=== PATIENT | male | born 1930 | race Caucasian/White ===

== ENCOUNTER 2017-03-21 19:51 | Observation (INO) | payer MEDICARE, BC ==
[~2017-03-21] VITALS: Ht 182.9 cm; Wt 89.8 kg
[~2017-03-21 19:51] MED LIST: ADULT LOW DOSE81 MG PO; ALBUTEROL SULF8.5 GM INH; ASPIRIN EC325 MG PO; ASPIRIN EC81 MG PO; ASPIRIN325 MG PO; BLOOD GLUCOSE1 EACH MISC; CARVEDILOL12.5 MG PO; CARVEDILOL6.25 MG PO; CEPHALEXIN250 MG PO; CIPRO500 MG PO; CLOPIDOGREL75 MG PO; DAILY VITE1 EACH PO; DSS250 MG PO; GLIPIZIDE XL5 MG PO; GLYBURIDE2.5 MG PO; HYDROCODON-ACE1 EA11 PO; IBUPROFEN200 MG PO; LEVAQUIN500 MG PO; LISINOPRIL2.5 MG PO; LISINOPRIL5 MG PO; MAGNESIUM500 MG PO; METFORMIN HCL1000 MG PO; METFORMIN HCL500 M1 PO; METFORMIN HCL500 M2 PO; METFORMIN HCL500 MG PO; NITROSTAT0.3 MG SL; NITROSTAT0.4 MG SL; OCUVITE EYE +1 EACH PO; OCUVITE TABLET1 EAC1 PO; OXYBUTYNIN CHLOR5 MG PO; PLAVIX75 MG PO; PRILOSEC20 MG PO; PRINIVIL5 MG PO; PROMETHAZINE-COD5 ML PO; PROSTATE HEALT1 EACH PO; SENNO8.6 MG PO; SERTRALINE HCL50 MG PO; SILVADENE20 GM TOP; SIMVASTATIN20 MG PO; SIMVASTATIN40 MG PO; SLOW-MAG71.5 MG PO; TYLENOL EXTRA500 MG PO; URINOZINC PROS1 EACH PO; VESICARE10 MG PO; VITAMIN D31000 UNIT PO; ZOFRAN ODT4 MG SL; ZOFRAN4 MG PO
[2017-03-21] MEDS ORDERED: MAGNESIUM500 MG PO (22:47)
[2017-03-21] MEDS ORDERED: METFORMIN HCL500 M2 PO (22:48)
[2017-03-21] MEDS ORDERED: NITROSTAT0.4 MG SL (22:49)
[2017-03-21] MEDS ORDERED: OCUVITE LUTEIN1 EAC2 PO (22:50)
[2017-03-21] MEDS ORDERED: PLAVIX75 MG PO (22:51)
[2017-03-21] MEDS ORDERED: PROVENTIL HFA6.7 GM INH (22:52)
[2017-03-21] MEDS ORDERED: SIMVASTATIN80 MG (22:53)
[2017-03-21] MEDS ORDERED: SIMVASTATIN80 MG PO (22:53)
--- NOTE | 2017-03-22 01:05 | NUR ---
87YR OLD MAN ADMITTED FROM ER VIA STRETCHER ACCOMPANIED BY TO ROOM 111. PT IS ALERT, ORIENTED TO PERSON, PLACE, SITUATION. STATES HE IS UNABLE TO MOVE SELF DUE TO SEVER BACK PAIN. 4 PERSON ASSIST WITH MAT TO SLIDE ONTO HOSP BED. TOLERATED WELL. IN GOOD SPIRITS. WARM BLANKET FOR COMFORT. ORIENTED TO ROOM AND CALL LIGHT. ORDERS NOTED.
--- NOTE | 2017-03-22 01:38 | NUR ---
TYLENOL GIVEN FOR BACK PAIN 12/09. REPOSITIONED FOR COMFORT. ORDERS NOTED AND ASSESSMENT COMPLETED. DENIES HEADACHE OR NAUSEA AT THIS TIME. IS GOING HOME FOR THE EVENING. CALL LIGHT IN EASY REACH.
--- NOTE | 2017-03-22 04:00 | NUR ---
PT LAYING ON HIS BACK, EYES CLOSED, RESP EVEN AND UNLABORED. TELE SHOWING SR @ 64 HR.
--- NOTE | 2017-03-22 06:32 | NUR ---
PT UP IN CHAIR. AMBULATED TO BATHROOM, WAS INCONT LARGE AMOUNT, VOIDED IN TOILET WELL. DENIES TINGLING IN HANDS OR FEET/LEGS. ORIENTATED TO PLACE AND EVENT. 2 PERSON TO AMBULATE, PT USES A WALKER AT HOME. PREVIOUS CVA SX. SPEECH CLEAR.
--- NOTE | 2017-03-22 08:06 | NUR ---
MORNING ASSESSMENT DONE. PATIENT SITTING UP IN CHAIR AND DENIES PAIN OR NAUSEA THIS MORNING. PATIENT HAS GOOD APPETITE AND ATE 80% OF BREAKFAST. 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 PATIENT IS ORIENTED X2, PICKS INCORRECT DAY OF MONTH. PATIENT ENDORSES THAT TIA EFFECTS ARE PASSED AND FEELS BACK TO BASELINE. WARM BLANKET PROVIDED FOR PATIENT.
--- NOTE | 2017-03-22 09:01 | NUR ---
DR. GARCIA IN TO EXAMINE PATIENT. PATIENT MAY BE ELIGIBLE TO DISCHARGE HOME TODAY WITH CONTINUED HOME HEALTH, IF CLEARED BY PHYSICAL THERAPY EVALUATION.
--- NOTE | 2017-03-22 09:54 | NUR ---
PATIENT UP AMBULATING WITH PHYSICAL THERAPY IN HALLWAY. PATIENT DOING WELL, STEADY AND USING WALKER.
--- NOTE | 2017-03-22 11:15 | NUR ---
TOOK OUT PTS IV, THAT WAS IN HIS LEFT HAND. IV WAS INTACT
== END 2017-03-22 12:25 | disposition home or self-care (01) ==
LOC: ED 19:51 → MS 19:54 → ED 03-22 00:35 → MS 03-22 12:25
PROVIDERS: ADMIT Internal Medicine
DX: G45.9 Transient cerebral ischemic attack, unspecified (principal); I25.10 Atherosclerotic heart disease of native coronary artery without angina pectoris; Z95.1 Presence of aortocoronary bypass graft; I10 Essential (primary) hypertension; E11.9 Type 2 diabetes mellitus without complications; E78.5 Hyperlipidemia, unspecified; G20 Parkinson's disease; I69.351 Hemiplegia and hemiparesis following cerebral infarction affecting right dominant side; Z88.8 Allergy status to other drugs, medicaments and biological substances; Z95.3 Presence of xenogenic heart valve; Z79.82 Long term (current) use of aspirin; Z79.02 Long term (current) use of antithrombotics/antiplatelets; Z79.84 Long term (current) use of oral hypoglycemic drugs; Z79.899 Other long term (current) drug therapy
CPT/HCPCS: 70450; 71010; 80053; 81001; 84484; 85025; 85610; 85730; 97161; 99285; G0378; G8978; G8979; G8980

== ENCOUNTER 2017-10-05 20:51 | Inpatient (IN) | payer MEDICARE, BC ==
[~2017-10-05] VITALS: Ht 182.9 cm; Wt 90.3 kg
[~2017-10-05 20:51] MED LIST changes: +OCUVITE LUTEIN1 EAC2 PO; +PROVENTIL HFA6.7 GM INH; +SIMVASTATIN80 MG
--- NOTE | 2017-10-06 01:24 | NUR ---
ADMIT TO RM 130 PER STRETCHER. IS AWAKE, SL SLOW TO RESPOND TO QUESTIONS. HAS OCC COUGH. RR 24-28 BUT UNLABORED. ALLEVYN APPLIED TO OPEN AREAS ON BUTTOCKS, HAD APPLIED ZINC OINTMENT TO THEM AND UNABLE TO WIPE OFF. CLEAN ATTENDS APPLIED, INC SMALL AMT URINE.
--- NOTE | 2017-10-06 02:07 | NUR ---
SLEEPING, CONT TO HAVE OCC COUGH.
--- NOTE | 2017-10-06 04:23 | NUR ---
AWAKENS EASILY, STATES IS SLEEPING OK. INC LARGE AMT URINE, ATTENDS CHANGED, MOISTURE BARRIAR TO PENIS AND SCROTUM. IS ALERT BUT DISORIENTED TO EVENT, TIME AND DATE. COOPERATIVE.
--- NOTE | 2017-10-06 06:02 | NUR ---
PT HAS INCREASED COUGHING, DID HAS SCANT EMESIS AND C/O BEING "SICK". GIVEN 4MG ZOFRAN IV. INC URINE, ATTENDS CHANGED. NOTED COLOR TO BEING SL PURPLE AND SATS CHECKED. SATS 82%, PLACED ON 02 3 LNC. STATES FEELING A "LITTLE" BETTER.
--- NOTE | 2017-10-06 06:34 | NUR ---
IS RESTFUL AT THIS TIME. SATS 92-94% ON 3L NC.
--- NOTE | 2017-10-06 08:30 | NUR ---
PATIENT AWAKE UPON INITIAL ASSESSMENT BUT STILL SOMEWHAT DROWSY. SP02 IS 98% ON 3 L, AND TURNED DOWN TO 2 L AROUND THIS TIME. PT ABLE TO TAKE HIS PO PILLS WITHOUT DIFFICULTY AFTER SITTING PATIENT UP. PT IS SLOW TO RESPOND, AND IS DISORIENTED TO PLACE AT THIS TIME. PT RE-ORIENTED BEST POSSIBLE. PT IS INCONTINENT OF URINE AT BASELINE AND ATTENDS TO BE CHANGED OFTEN. BP THIS AM 149/81 AND HEART RATE IN THE 70-80s. PT IS NOTED TO BE TACHYPNEIC, WITH RR 25-28. CRACKLES AUSCULTATED IN LOWER LUNG BECKETT POSTERIORLY. PT NOTED TO HAVE A LOOSE, SOMEWHAT PRODUCTIVE COUGH. ENCOURAGING PATIENT TO COUGH SPUTUM UP AND OUT IF HE CAN. BED ALARM ON FOR SAFETY. CONTINUE TO MONITOR. CALL LIGHT WITHIN REACH.
--- NOTE | 2017-10-06 11:06 | EKG ---
[facility] [address] [place] [address] Signed Sinus rhythm with 1st degree AV block Left axis deviation Left ventricular hypertrophy with QRS widening Inferior infarct , age undetermined Possible Anterolateral infarct , age undetermined Abnormal ECG Confirmed by CHRIS GARCIA MD ([id number]) on 10/06/2017 11:06:49 AM Electronically Signed By: CHRIS GARCIA MD 10/06/17 1106 PATIENT NAME: BELEN VERDUGO Electrocardiogram DATE OF : [birth year] PHYSICIAN: CHRIS GARCIA MD REPORT #: [id number] REPORT IS CONFIDENTIAL AND NOT TO BE RELEASED WITHOUT AUTHORIZATION
--- NOTE | 2017-10-06 11:39 | NUR ---
PHARMACY IN ROOM GOING THROUGH MEDICATION LIST WITH PATIENT'S . PT'S IS THE MAIN CAREGIVER OF PATIENT AND HAS SOME CONCERNS ABOUT PATIENT AND HIS "SILENT STROKES" HE HAS. SHE WANTS THE NURSING STAFF AND THE MD TO BE AWARE OF THESE SILENT STROKES. PT REMAINS IN BED AT THIS TIME WITH A PRODUCTIVE COUGH, SPUTUM NOTED TO BE YELLOWISH/PURULENT LIKE. PT ENCOURAGED TO CONTINUE COUGHING UP AND OUT THE SPUTUM. SP02 97 ON 2 L NC. PT'S LUNCH ORDERED FOR HIM AT THIS TIME.
--- NOTE | 2017-10-06 11:43 | NUR ---
PATIENT'S REQUESTS THAT THERAPY HOLD EVALUATION FOR TODAY STATING THAT HE IS NOT ABLE TO PARTICIPATE LIKE HE NORMALLY WOULD AND THAT HE IS MUCH STIFFER THAN NORMAL. SPOKE WITH HIS NURSE WHO REPORTS THAT HE IS NOT ABLE TO FULLY PARTICIPATE TODAY AND THAT HE CAN HOLD UNTIL TOMORROW. SHE WILL CONTINUE WITH BED MOBILITY AND ADLS. PATIENT'S WOULD LIKE TO DISCUSS DISCHARGE TO SHORT TERM PLACEMENT FOR PATIENT'S REHABILITATION AND THAT SHE MAY NEED MORE HELP AT HOME ASSISTANT AUTO CENTER MANAGER.
--- NOTE | 2017-10-06 12:58 | NUR ---
PATIENT'S IN ROOM WITH PATIENT AND EXPRESSES CONCERNS THAT SHE THINKS PATIENT HAS HAD ANOTHER "MINI STROKE." SHE STATES, "THIS IS HOW HE ACTS WHEN HE HAS HAD A STROKE." NEURO ASSESSMENT COMPLETED BEST POSSIBLE. PT IS STILL SOMEWHAT WITHDRAWN AND SLOW TO RESPOND TO QUESTIONS, BUT DOES UTTER A FEW WORDS WHEN PROMPTED. PT HAS GENERALIZED WEAKNESS, AND IS VERY STIFF THROUGHOUT HIS EXTREMETIES. PT DOES SQUEEZE BOTH HANDS WHEN ASKED TO, BUT IS JUST SLOW TO FOLLOW THESE REQUESTS. PT SITTING UP IN BED, AND PT'S IS HELPING PATIEN TO EAT. PT CONTINUES WITH A PRODUCIVE COUGH. SP02 CURRENTLY 97% ON [address] GARCIA NOTIFIED OF CONCENS ABOUT THIS PATIENT. NO FURTHE ORDERS AT THIS TIME, BUT PATIENT WILL CONTINUE TO BE MONITORED CLOSELY.
--- NOTE | 2017-10-06 15:21 | NUR ---
BED BATH AND LINEN CHANGE COMPLETED. PT TOLERATED WELL. RESTING IN BED. BED ALARM ON.
[2017-10-06] MEDS ORDERED: GLUCOTROL5 MG PO (15:36)
--- NOTE | 2017-10-06 16:02 | NUR ---
PT TO FLOOR VIA BED WITH AND CAIN MUNIZ. PT SMILES WHEN TALKED TO BUT MOSTLY OBTUNDED. DOES NOT MAKE EYE CONTACT OR ANSWER QUESTIONS. ON FLU PRECAUTIONS. REPORT RECIEVED FROM ACIN SHERMAN.
--- NOTE | 2017-10-06 16:18 | NUR ---
ORDERED DINNER FOR PT PER 'S REQUEST. WILL MONITOR WHILE EATING.
--- NOTE | 2017-10-06 18:10 | NUR ---
PT EATING DINNER WITH ASSISTANCE OF . DOING WELL, NO CHOKING NOTED. ABLE TO SWALLOW WELL. ATE MOST OF DINNER. COMMUNICATING WITH STAFF AND MINIMALLY BUT WILL NOD YES.
--- NOTE | 2017-10-06 18:42 | NUR ---
PT RESPONDS TO VOICE. INCONTINENT. DEPENDS IN PLACE. SMALL BM. AT BEDSIDE. ASSISSTED WITH FEEDING. SWALLOWING WELL. ASP. PRECAUTIONS. TITRATED FROM 2L THIS AM TO ROOM AIR. TOLERATING WELL. VS STABLE. ALLEVYN ON BUTTOCKS.
--- NOTE | 2017-10-06 19:05 | NUR ---
PATIENT RESTING IN BED. PATIENTS IN ROOM. THIS PRODUCER DIRECTOR, TOSHIA RAVI, AND AN RN CHANGED PATIENT INTO CLEAN ATTENDS. WE REPOSITIONED PATIENT WELL ONTO HIS RIGHT SIDE. PATIENT HAD A SMALL BM. RN CHANGED DRESSING ON BACKSIDE. PRODUCER DIRECTOR APPLIED BARRIER CREAM WELL. FRESH ICE WATER. CALL LIGHT WITHIN REACH. NO OTHER NEEDS AT THIS TIME.
--- NOTE | 2017-10-06 20:16 | NUR ---
PT LAYING IN BED AWAKE, NO APPARENT DISTRESS. RESPIRATORY THERAPY IN ADMINISTERING CPT, PT TOLERATING WELL. AND DAUGHTER AT BEDSIDE, FRIENDLY AND PLEASENT. PT DENIES PAIN. REPORTS FEELING BETTER. NON-PRODUCTIVE COUGH. PT RE-POSITIONED IN BED. GAVE TYLENOL FOR 99.1 TEMPERATURE. PILLS GIVEN, PT SWALLOWED WELL WITH APPLESAUCE. DROPLET PRECAUTIONS USED. CALL LIGHT IN REACH.
--- NOTE | 2017-10-06 21:00 | NUR ---
PT IN BED. CHANGED AND Q2TURN PT. EMPTYED GARBAGE.
--- NOTE | 2017-10-07 00:01 | NUR ---
TURNED TO LEFT SIDE, INCONTINENT OF URINE, EDEMATOUS AND RED SCROTUM AND PENILE AREA, SKIN CLEANSED, LOTION APPLIED, CLEAN ATTENDS IN PLACE. PROCEDURE EXPLAINED, PT COOPERATIVE. CONTINUES ON DROPLET ISOLATION
--- NOTE | 2017-10-07 01:51 | NUR ---
PT RESTING IN BED. WILL CHECK BACK ON PT LATER. PT HAS CALL [facility] IN REACH
--- NOTE | 2017-10-07 02:11 | NUR ---
PT RESTING QUIELTY, APPEARS TO BE SLEEPING. RR WNL AND UNLABORED. LIGHTS AND TV OUT IN ROOM.
--- NOTE | 2017-10-07 06:13 | NUR ---
PT SLEPT MAJORITY OF SHIFT. NO DISTRESS OVERFNIGHT. CPT LAST NIGHT AT SHIFT CHANGE. SCANT PRODUCTIVE COUGH. TURNED Q2 OVERNIGHT. REDDENED COCCYX, ALLEVYN DRESSING IN PLACE. INCONTINENT, ATTENDS IN PLACE. PT PLEASENT AND COOPERATIVE.
--- NOTE | 2017-10-07 07:35 | NUR ---
RECIEVED REPORT FROM AQUATIC PHYSIOTHERAPIST NURSE. PATIENT PLACED ON BEDPAN BY INFORMATION SYSTEMS MANAGER. INFORMATION SYSTEMS MANAGER REPORTS HE WAS INCONTINENT OF URINE. PERICARE WILL BE PERFORMED AFTER PATIENT IS OFF BEDPAN. CALL LIGHT IN REACH.
--- NOTE | 2017-10-07 08:20 | NUR ---
BED LINEN CHANGED. PERICARE PERFORMED. FOAM DRESSING REMOVED BECAUSE IT WAS SATURATED WITH URINE. LEAVING FOAM DRESSING OFF, APPLIED BARRIER CREAM AND USED BARRIER WIPES. SKIN ON COCCYX PEELING OFF. A FEW SMALL OPEN AREAS NOTED. REPOSITIONED PATIENT UPRIGHT IN BED FOR PILLS AND BREAKFAST. PATIENT IS COUGHING UP THICK YELLOW SPUTUM THIS MORNING. COURSE RHONCHI NOTED IN RLL, CRACKLES IN LLL. TITRATED O2 TO 1LPM. PATIENT'S O2 WAS 98% ON 2LPM. BS ACTIVE. HR IRREG. PATIENT DENIES PAIN. NO EDEMA. CALL LIGHT IN REACH.
--- NOTE | 2017-10-07 10:00 | NUR ---
ASSISTED PHYSICAL THERAPIST WITH STANDING PATIENT. PATIENT IS STILL VERY WEAK AND UNABLE TO STAND ON HIS OWN. CHANGED PATIENT'S BRIEF-INCONT. OF URINE. PERICARE PERFORMED. BARRIER CREAM APPLIED ON COCCYX. REPOSITIONED PATIENT IN BED ON L SIDE. IN ROOM. HYDRATION GIVEN. PATIENT DENIES FURTHER NEEDS AT THIS TIME. CALL LIGHT IN REACH.
--- NOTE | 2017-10-07 11:00 | NUR ---
PATIENT REQUESTING FOR DIET COKE. FAMILY IN ROOM. DENY FURTHER NEEDS. CALL LIGHT IN REACH.
--- NOTE | 2017-10-07 11:56 | NUR ---
BLOOD SUGAR OBTAINED. PATIENT HAVING LUNCH NOW. HAM BONER IN TO CHAT WITH PATIENT AND FAMILY. DENIES NEEDS. CALL LIGHT IN REACH.
--- NOTE | 2017-10-07 12:25 | NUR ---
CHANGED PATIENT FOR EPISODE OF URINARY AND STOOL INCONT. BM WAS SMALL AND SOFT. PERICARE PERFORMED, BARRIER CREAM APPLIED. NEW BRIEF IN PLACE. REPOSITIONED PATIENT ON L SIDE. PATIENT C/O BACK PAIN WHEN HE IS FLAT ON HIS BACK. HYDRATION OFFERED. DENIES NEEDS, CALL LIGHT IN REACH.
--- NOTE | 2017-10-07 14:02 | NUR ---
PATIENT RESTING IN BED. DENIES NEEDS. IVF INFUSING W/O DIFFICULTY. CALL LIGHT IN REACH.
--- NOTE | 2017-10-07 14:30 | NUR ---
PATIENT RESTING IN BED. AT BEDISDE. CHANGED BRIEF FOR EPISODE OF URINARY AND STOOL INCONT. BM WAS SOFT AND FORMED. COPIOUS AMOUNT OF URINE IN BRIEF. PERICARE PERFORMED WITH BARRIER WIPES, BARRIER CREAM PLACED ON SCROTUM AND COCCYX. REDNESS TO BOTH AREAS. REPOSITIONED ON R SIDE. HEEL PROTECTORS PLACED. LUNGS STILL HAVE COURSE CRACKLES IN BASES. PRODUCTIVE COUGH STILL PRESENT. PATIENT DENIES PAIN AT THIS TIME. CALL LIGHT IN REACH.
--- NOTE | 2017-10-07 16:30 | NUR ---
REPOSITIONED PATIENT ON L SIDE. PATIENT HAD HEAVY URINARY INTCONT., CLEANED WITH BARRIER WIPES, APPLIED BARRIER CREAM TO COCCYX AND SCROTUM. REDNESS NOTED IN BOTH AREAS. NEW BRIEF IN PLACE. TYLENOL ADMINISTERED FOR LOWER BACK PAIN. PATIENT DENIES FURTHER NEEDS. PRODUCTIVE COUGH NOTED.
--- NOTE | 2017-10-07 17:43 | NUR ---
PT IS RESTING IN BED SAFELY WITH CALL LIGHT IN REACH. PT DID NOT NEED ANYTHING ELSE AT THE MOMENT
--- NOTE | 2017-10-07 18:26 | NUR ---
CHANGED PATIENT FOR EPISODE OF HEAVY URINARY INCONT., PATIENT ALSO HAD SMEAR OF STOOL. CLEANED WITH BARRIER WIPES. APPLIED BARRIER CREAM TO COCCYX AND SCROTUM. NEW BRIEF IN PLACE. REPOSITIONED ON R SIDE. PATIENT STATES HE FEELS COMFORTABLE. HYDRATION OFFERED. PATIENT DENIES FURTHER NEEDS. CALL LIGHT IN REACH.
--- NOTE | 2017-10-07 19:00 | NUR ---
SHIFT REPORT RECIEVED AT BEDSIDE. PATIENT IS RESTING IN BED. HE APPEARS COMFORTABLE AND DENIES NEEDS. CALL LIGHT IN REACH.
--- NOTE | 2017-10-07 19:56 | NUR ---
ROUNDED CHARGE. PATIENT IS RESTING IN BED. PATIENT DENIES ANY COMMENTS, QUESTIONS, OR CONCERN. CALL LIGHT IN REACH.
--- NOTE | 2017-10-07 21:31 | NUR ---
VITALS AND I&OS DONE AND CHARTED. BLOOD SUGAR DONE WELL. PT IS SLEEPING. BEDSIDE TABLE AND CALL LIGHT WITHIN REACH.
--- NOTE | 2017-10-07 21:55 | NUR ---
MEDS GIVEN PER ORDER. PATIENT ASSESSMENT COMPLETED. PATIENT IS ORIENTED X4. SPEECH IS SLURRED AND SLOW TO RESPOND. PATIENT'S LUNGS ARE COARSE IN UPPER LOBES BILATERAL WITH CRACKLES IN THE BASES BILATERALLY. PATIENT DOES NOT FOLLOW INSTRUCTIONS TO COUGH AND DEEP BREATH. PATIENT IS ON 1L NC, O2 SAT >98%. PATIENT REPORTS CHRONIC BACK PAIN, REPORTS GOOD PAIN CONTROL AT THIS TIME. NO NAUSEA. BOWEL SOUNDS ACTIVE, ABD SOFT AND NONTENDER. CMS INTACT, PATIENT HAS GENERALIZED WEAKNESS. MORE SO ON THE RIGHT SIDE. PATIENT INCONTINENT OF LARGE AMOUNT OF URIN. BRENT CARE PERFORMED, AREA OF OPEN SKIN ON BUTTOCKS. BARRIER CREAM APPLIED. RED AREA ON TESTICLES, BARRIER CREAM APPLIED. PATIENT TURNED TO LEFT SIDE. REPORTS BEING COMFORTABLE. IV FLUIDS INFUSING PER ORDER, SITE WNL. PATIENT DENIES OTHER NEEDS. CALL LIGHT IN REACH.
--- NOTE | 2017-10-07 22:50 | NUR ---
CHANGED PT'S ATTEND WITH CAIN HARPER. REPOSITIONED HIM TO HIS LEFT SIDE WITH A PILLOW. BEDSIDE TABLE AND CALL LIGHT WITHIN REACH.
--- NOTE | 2017-10-08 01:29 | NUR ---
PATIENT WAS AWAKE, RESTING IN BED WHEN RN ENTERED ROOM. ATTENDS WAS WET, CHANGED WITH ASSIST FROM [facility]. BARRIER CREAM APPLIED. PATIENT TURNED TO RIGHT SIDE. PATIENT DENIES PAIN EXCPET FOR SOME STIFFNESS IN HIS BACK WHEN ROLLING. PATIENT CONTINUES TO HAVE MODERATE AMOUNT OF SPUTUM, BROWN/YELLOW. PATIENT IS ORIENTED X4. DENIES ANY NEEDS AT THIS TIME. CALL LIGHT IN REACH.
--- NOTE | 2017-10-08 01:35 | NUR ---
CHANGED PTS ATTEND WITH CAIN HARPER. REPOSITIONED HIM IN BED. BEDSIDE TABLE AND CALL LIGHT WITHIN REACH.
--- NOTE | 2017-10-08 03:50 | NUR ---
PATIENT'S ATTEND CHANGED. LARGE AMOUNT OF URINE. BARRIER CREAM APPLIED. REPOSITIONED TO BACK, HIPS FLOATED. PATIENT WAS ON ROOM AIR, O2 SAT 88%. TITRATED TO 1L NC. PATIENT DENIES ANY NEEDS. CALL LIGHT IN REACH.
--- NOTE | 2017-10-08 04:10 | NUR ---
CHANGED PTS ATTEND WITH CAIN HARPER. REPOSITIONED HIM IN BED. BEDSIDE TABLE AND CALL LIGHT WITHIN REACH.
--- NOTE | 2017-10-08 05:54 | NUR ---
PATIENT SLEPT OFF AND ON THROGUHOUT THE NIGHT. ORIENTED X4. SLOW TO RESPOND AND SLURRED SPEECH AT TIMES. WEAKNESS IMPROVED ON LEFT SIDE, RIGHT SIDE CONTINUES TO BE WEAK WHICH IS CHRONIC. PATIENT ABLE TO ASSIST WITH ROLLING. TURN Q2HR. FREQUENT BRENT CARE, PATIENT INCONTINENT OF LARGE AMOUNTS OF URINE. REDNESS ON TESTICLES AND BUTTOCK, OPEN AREAS ON BUTTOCK COVERED WITH BARRIER CREAM. 1L NC, ATTEMPTED TO TITRATE TO ROOM AIR. O2 SATS DROPPED TO 88% WHILE AWAKE.
--- NOTE | 2017-10-08 06:12 | NUR ---
VITALS AND I&OS DONE AND CHARTED. BEDSIDE TABLE AND CALL LIGHT IN REACH.
--- NOTE | 2017-10-08 07:13 | NUR ---
PT IN BED, AWARE OF MY PRESENCE, REACHED OUT TO SHAKE MY HAND. JAYJAY ON COUCH AND ADMITTED SHE DIDN'T FEEL WELL-NOT WEARING PRECAUTIONS. I ENCOURAGED HER TO AT LEAST WEAR A MASK. PRAYED WITH BOTH AT THEIR REQUEST. WILL FOLLOW NEEDED
--- NOTE | 2017-10-08 07:49 | NUR ---
RECIEVED BEDSIDE REPORT FROM CAIN HARPER. PT AWAKE AND ALERT X3. O2 IN PLACE, IV FLUIDS RUNNING AT 75. PT WAS TOLD HIS WAS ADMITTED NEXT DOOR. PT HANDLED NEWS WELL. PT WAITING FOR BREAKFAST.
--- NOTE | 2017-10-08 17:35 | NUR ---
PT DID NOT PARTCIPATE IN THERAPY THIS SHIFT, STATED HE WAS TOO WEAK. PT MAINTAINED O2 ON 1L. TURN AND CHANGE Q2H. REDNESS ON COCCYX AND SCROTUM. PT TOLERATED PO INTAKE, SHAKES. PT HAS CONCERNS ABOUT GOING TO [facility], ASKED TO SEE HIS TO DISCUSS PLAN. WAS BROUGHT INTO HIS ROOM.
--- NOTE | 2017-10-08 19:05 | NUR ---
SHIFT REPORT RECEIVED. PATIENT RESTING IN BED. HE IS AAOX4. IV FLUIDS INFUSING PER ORDER. STATES HE HAD A GOOD DAY TODAY. NO NEEDS AT THIS TIME.
--- NOTE | 2017-10-08 21:25 | NUR ---
EVENING MEDS GIVEN. PATIENT HAD APPEARS TO BE SLEEPING BUT AROUSED EASILY. ORIENTED X4. DENIES PAIN. LUNGS ARE COARSE THROUGHOUT, IMPROVED FROM YESTERDAY. MILD AMOUNT OF SPUTUM COMPARED TO PREVIOUS NIGHT. PATINET 99% ON 1L NC. TITRATED TO ROOM AIR. WILL CONTINUE TO MONITOR. ABD IS SOFT, NONTENDER, BOWEL SOUNDS ACTIVE. PATIENT'S ATTEND WET, BRENT CARE PROVIDED. PATIENT TURNED TO RIGHT SIDE. PATIENT DENIES OTHER NEEDS. CALL LIGHT IN REACH.
--- NOTE | 2017-10-08 23:30 | NUR ---
PATIENT APPEARS TO BE SLEEPING. RR 17. CALL LIGHT IN REACH.
--- NOTE | 2017-10-09 04:14 | NUR ---
HELPED RN LEROY CHANGE PTS ATTENDS INCONTINENT OF URINE. REPOSITIONED HIM IN BED.BEDSIDE TABLE AND CALL LIGHT IN REACH.
--- NOTE | 2017-10-09 04:20 | NUR ---
PATIENT ATTENDS WERE SOAKED THROUGH WITH URINE. BRENT CARE PERFORMED. BARRIER CREAM APPLIED. REPOSITIONED PATIENT. HE DENIES PAIN. NO NEEDS AT THIS TIME. IV FLUIDS INFUSING, SITE WNL. CALL LIGHT IN REACH.
--- NOTE | 2017-10-09 05:00 | NUR ---
patient's in to visit him. he denies any needs.
--- NOTE | 2017-10-09 05:46 | NUR ---
PATIENT SLEPT OFF AND ON THROGUHOUT THE SHIFT. TITRATED TO ROOM AIR. LUNG SOUNDS HAVE IMPROVED, BUT STILL COARSE THROUGHOUT. PATIENT INCONTINENT OF LARGE AMOUNTS OF URINE, BRENT CARE PROVIDED PRN AND Q2HR. TURN Q2HR. SKIN ON BUTTOCKS CONTINUES TO PEEL, BLANCHABLE. IV FLUIDS INFUSING PER ORDER. PATIENT HAS NOT BEEN OUT OF BED THIS SHIFT. ORIENTED X4 BUT FORGETFUL.
--- NOTE | 2017-10-09 07:31 | NUR ---
RECIEVED BEDSIDE REPORT FROM CAIN HARPER. PT RESTING IN BED WITH EYES CLOSED, WAKES TO VOICE. IV FLUIDS RUNNING AT 75ML/HR. VOIDING COPIOUS AMTS OF URINE. TITRATED O2 TO ROOM AIR, TOLERATED WELL.
--- NOTE | 2017-10-09 14:30 | NUR ---
RECEIVED REPORT FROM CATY BARLOW. PT UP IN BED. FLUIDS INFUSING @ 75/HR. PT IS ON RA. PT DOES NOT WANT TO GET UP TO CHAIR AT THIS TIME. REPORTS NO PAIN. CALL LIGHT WITHIN REACH. TURNED ON LEFT SIDE WITH PILLOWS UNDER RIGHT SIDE.
--- NOTE | 2017-10-09 16:56 | NUR ---
HELPED NURSE GRACY PUT PATIENT ON COMMODE, THEN WE WENT OVER TO THE CHAIR, HE DID WELL USING THE GATEBELT AND HIS WALKER
--- NOTE | 2017-10-09 16:59 | NUR ---
PT UP TO BSC THEN CHAIR. PT SPIRITS HIGH WITH ABILITY TO WALK WITH WALKER. CALLED HIS TO GIVE THE NEWS OF WALKING TO CHAIR. FLUID BAG CHANGED. BS 206. PERSONAL ITEMS AT BEDSIDE. CALL LIGHT WITHIN REACH. REPORTS NO NEEDS AT THIS TIME.
--- NOTE | 2017-10-09 18:45 | NUR ---
1-2PA TO CHAIR AND BSC. FreddieLE @ 75. ACCU CHECKS. LIKES PILLS IN APPLE SAUCE. CHRONIC BACK PAIN. NEEDS ENCOURAGING FOR PT AND GETTING UP TO CHAIR. TURN AND CHECK ATTENDS Q1. DC TO [facility] WEDNESDAY.
--- NOTE | 2017-10-09 19:00 | NUR ---
SHIFT REPORT RECEIVED. PATIENT APPEARS TO BE SLEEPING. RR 16. CALL LIGHT IN REACH.
--- NOTE | 2017-10-09 21:10 | NUR ---
PATIENT APPEARS TO BE SLEEPING. AWOKE EASILY TO VOICE. VS COMPLETED, WNL. EVENING MEDS GIVEN PER ORDER. PATIENT DENIES PAIN. LUNG ARE CLEAR IN UPPER LOBES BILATERALLY, FINE CRACKLES IN THE BASES. ABD IS SOFT AND NONTENDER, BOWEL SOUNDS ACTIVE. ATTENDS IS DRY. PATIENT APPEARS STRONGER THAN PREVIOUS, HOWEVER HE IS VERY TIRED. PATIENT REQUEST NOT TO BE TURNED AT THIS TIME, AGREED TO WAIT FOR A LITTLE LONGER. NO OTHER NEEDS AT THIS TIME.
--- NOTE | 2017-10-09 22:41 | NUR ---
PATIENT'S ATTENDS CHANGED AND REPOSITIONED. HE DENIES ANY NEEDS. HE STILL HAS A CONGESTED COUGH. IV SITE WNL, FLUIDS INFUSING.
--- NOTE | 2017-10-09 22:43 | NUR ---
HELPED RN LEROY CHANGE PTS ATTENDS INCONTINTENT OF URINE AND A VERY SMALL BM. REPOSITIONED PT IN BED. BEDSIDE TABLE AND CALL LIGHT WITHIN REACH.
--- NOTE | 2017-10-10 01:15 | NUR ---
PATIENT INCONTINENT OF URINE, BRENT CARE PERFORMED, BARRIER CREAM APPLIED. PATIENT REPOSITIONED ONTO RIGHT SIDE. DENIES ANY NEEDS AT THIS TIME. COUGHING SOME MORE WITH MODERATE AMOUNT OF SPUTUM, TISSUES PROVIDED PER REQUEST.
--- NOTE | 2017-10-10 06:15 | NUR ---
PATIENT WAS INCONTINENT OF URINE. FRESH ATTENDS AND BARRIER CREAM APPLIED. FRESH LINENS PLACED ON BED. GOWN CHANGED. PATIENT REPOSITIONED TO LEFT SIDE. DENIES ANY NEED. CALL LIGHT IN REACH.
--- NOTE | 2017-10-10 06:39 | NUR ---
VITALS AND I&OS DONE AND CHARTED. BEDSIDE TABLE AND CALL LIGHT WITHIN REACH.PT NEEDS NOTHING ELSE AT THIS TIME.
--- NOTE | 2017-10-10 06:47 | NUR ---
SPOKE TO ABOUT IV SITE. SHE AGREED TO LEAVE IT IN PAST THE ROUTINE 4 DAYS UNTIL PATIENT DC ON WEDNESDAY.
--- NOTE | 2017-10-10 07:30 | NUR ---
RECIEVED REPORT FROM PICTURE BOOKER RN. PT APPEARS TO BE SLEEPING FLUIDS INFUSING. CALL MARTIN WITHIN REACH.
--- NOTE | 2017-10-10 09:00 | NUR ---
PT AWAKE IN BED SET UP FOR BRK. CHANGED ATTEND.
--- NOTE | 2017-10-10 12:06 | NUR ---
PT UP IN CHAIR VIA 1PA WITH FWW WITH PYSICAL THERAPY. TOLLERATED WELL. LUNCH SERVED. AT BEDSIDE. REPORTS NO PAIN AT THIS TIME. FLUIDS INFUSING @ 75. CALL LIGHT AT BEDSIDE. REPORTS NO OTHER NEEDS AT THIS TIME.
--- NOTE | 2017-10-10 12:19 | NUR ---
HELPED PT GET HIM IN THE CHAIR. WARM BLANKETS. CHANGED LINENS. SET UP FOR LUNCH
--- NOTE | 2017-10-10 14:22 | NUR ---
2PA WITH FWW BACK TO BED. CHANGED ATTENDS. PT TOLERATED WELL.
--- NOTE | 2017-10-10 17:00 | NUR ---
CHANGED PT POSITION ONTO LEFT SIDE. PILLOW UNDER RIGHT SIDE. ATTENDS CHANGED. PT REPORTS NO PAIN AT THIS TIME. CALL LIGHT WITHIN REACH AND PEROSNAL ITEMS AT BEDSIDE.
--- NOTE | 2017-10-10 18:01 | NUR ---
TURNED PATIENT SUPINE AND LIFTED IN BED AFTER CHANGING ATTEND. ALLEVYN PLACED ON COCCYX. SKIN DISCOLORED ON COCCYX. PT HAD SMEARS OF BM WITH WIPING. DENIED WANTING TO TRANSFER TO CHAIR. PT REQUESTS LIGHTS OFF. WATCHING TELEVISION NOW.
--- NOTE | 2017-10-10 18:45 | NUR ---
1-2PA WITH FWW. PILLS IN APPLE SAUCE. 1 MORE DAY OF TAMIFLU. ADA DIET. TOLERATED WALKING TO CHAIR AND BACK. ATTENDS IN PLACE. LARGE AMOUNTS OF URINE OUT. REPORTS NO PAIN. NO DISCOMFORT. RR WNL.
--- NOTE | 2017-10-10 19:35 | NUR ---
RECIEVED REPORT FROM DAY SHIFT NURSE. PATIENT SITTING UP IN BED. DAUGHTER AT BEDSIDE. DELIVERED PUDDING PER PT'S REQUEST. HYDRATION OFFERED. PATIENT STATES HE IS COMFORTABLE AT THIS TIME. DENIES FURTHER NEEDS. CALL LIGHT IN REACH.
--- NOTE | 2017-10-10 21:30 | NUR ---
REPOSITIONED PATIENT ON R SIDE. CHANGED FOR EPISODE OF URINARY INCONT. APPLIED BARRIER CREAM TO SCROTUM. SCROTUM IS REDDENED. FOAM DRESSING STILL CLEAN AND INTACT ON COCCYX. LUNGS ARE CLEAR IN UPPERS AND CRACKLES HEARD IN BLL. RHONCI HEARD IN LLL. PATIENT STILL COUGHING UP SPUTUM, COUGH IS MOIST AND LOOSE SOUNDING. PATIENT DENIES PAIN AT THIS TIME. CALL LIGHT IN REACH.
--- NOTE | 2017-10-10 21:41 | NUR ---
VITALS AND I&OS DONE AND CHARTED. HELPED RN MIKE CHANGE PTS ATTEND INCONTINENT OF URINE. REPOSITIONED PT TO THE LEFT SIDE. BEDSIDE TABLE AND CALL LIGHT IN REACH. PT NEEDS NOTHING ELSE AT THIS TIME.
--- NOTE | 2017-10-10 23:30 | NUR ---
PATIENT RESTING IN BED. OBTAINED NEW IV SITE ON R ARM. REPOSITIONED PATIENT ON L SIDE. CHANGED ATTENDS AND ASSISTED WITH PERICARE. NO C/O PAIN. PATIENT STILL COUGHING. DENIES NEEDS. CALL LIGHT IN REACH.
--- NOTE | 2017-10-11 00:09 | NUR ---
CHANGED HIS ATTEND AND REPOSITIONED HIM IN BED WITH THE HELP OF CAIN MCKEON. BEDSIDE TABLE AND CALL LIGHT WITHIN REACH.
--- NOTE | 2017-10-11 03:02 | NUR ---
REPOSITIONED PATIENT ON R SIDE. CHANGED FOR EPISODE OF URINARY INCONT., PERICARE PERFORMED, BARRIER CREAM APPLIED TO COCCYX AND SCROTUM. REDNESS IN BOTH AREAS. FOAM DRESSING FELL OFF COCCYX DUE TO INCONTINENCE. LUNGS ARE CLEAR-->DIMINISHED. PATIENT STATES HE IS NOT COUGHING MUCH. BS ACTIVE. HR IRREGULAR. NO C/O PAIN. HYDRATION GIVEN. WARM BLANKET APPLIED. PATIENT DENIES NEEDS. CALL LIGHT IN REACH.
--- NOTE | 2017-10-11 03:10 | NUR ---
HELPED RN MIKE CHANGE HIS ATTENDS INCONTINENT OF URINE. REPOSITIONED PT IN BED. BEDSIDE TABLE AND CALL LIGHT WITHIN REACH.
--- NOTE | 2017-10-11 04:03 | NUR ---
PATIENT SLEEPING. CALL LIGHT IN REACH.
--- NOTE | 2017-10-11 05:45 | NUR ---
REPOSITIONED PATIENT ON R SIDE. CHANGED FOR EPISODE OF URINARY INCONT. NO C/O PAIN. HYDRATION OFFERED AND GIVEN. REFILLED WATER PITCHER. IVF INFUSING W/O DIFFICULTY. PATIENT STILL COUGHING UP THICK YELLOW SPUTUM. CALL LIGHT IN REACH.
--- NOTE | 2017-10-11 05:51 | NUR ---
VITALS AND I&OS DONE AND CHARTED. CHANGED ATTENDS WITH THE HELP OF RN MIKE. REPOSITIONED PT IN BED. BEDSIDE TABLE AND CALL LIGHT WITHIN REACH. PT NEEDS NOTHING ELSE AT THIS TIME.
--- NOTE | 2017-10-11 08:26 | NUR ---
pt sitting in bed. ate 75% of his breakfast. will give 3 units insulin for 192 fsbs.
--- NOTE | 2017-10-11 08:41 | NUR ---
PT AWAKE IN BED. Q2TURN. SET UP FOR BRK. AM CARE. FRESH ICE WATER AND JUICE.
--- NOTE | 2017-10-11 10:15 | NUR ---
FAXED UPDATED CLINICALS FROM 10/09 AND 10/10/17 TO [facility]. TALKED WITH MARTINE FROM [facility], HE STATES THEY ARE ACCEPTING THIS PT.
--- NOTE | 2017-10-11 10:30 | NUR ---
MRONING ASSESSMENT COMPLETED. LUNGS ARE DIM AND CLEAR. 2PA WITH PHYSICAL THERAPY TO CHAIR. PT NEEDED MANY QUES AND INSTRUCTIONS TO TRANSFER. ATTENDS CHANGED. PT DID CHAIR EXCERSISES WITH PHYSICAL THERAPY. CMS INTACT. A/O.
--- NOTE | 2017-10-11 10:33 | NUR ---
2PA TO BSC. UNABLE TO TAKE STEPS TO BSC. ATTEMPTED TO USE WALKER WITH TRANSFER. PATIENT HAD INCONTINENT LARGE BM IN ATTEND DURING TRANSFER. PHYSICAL THERAPY CAME TO WORK WITH PATIENT WELL. [place] [facility] [place]ER CHAIR BEHIND PATIENT HE WAS UNABLE TO SHUFFLE OR PIVOT. PATIENT DID LEG EXERCISES IN BED WITH PHYSICAL THERAPIST. COCCYX LOOKS EXCORIATED. WILL FOCUS ON KEEPING PATIENT OFF COCCYX DURING TURNS IN BED. BARRIER CREAM APPLIED TO BUTTOCKS WHEN ATTEND CHANGED AFTER [place]ER [place] [facility] TYPE ATTEND IN PLACE NOW. CALL LIGHT WITHIN REACH. LINENS CHANGED. GOWN CHANGED. SOCKS CHANGED.
--- NOTE | 2017-10-11 11:15 | NUR ---
FAXED ORDERS AND PASRR TO [facility], RECIEVED CONFIRMATION.
--- NOTE | 2017-10-11 11:17 | NUR ---
STOOD PATIENT TO PUT STREET CLOTHES ON AND CHANGE ATTEND. PATIENT STOOD, BUT LEANS BACK WARDS. MORE UNSTEADY TODAY. PATIENT VOIDING OFTEN. SALINE LOCKED PATIENT UNTIL WORD FROM TELEMARKETER ON DISPOSITION TO [facility] [place].
--- NOTE | 2017-10-11 13:00 | NUR ---
RECIEVED A MESSAGE FROM MARTINE AT [facility] THAT ORDERS WERE OK AND PT IS GOOD TO GO TO THEIR FACILITY. INFORMED AND DAUGHTER OF THIS.
--- NOTE | 2017-10-11 13:02 | NUR ---
PT SITTING IN CHAIR, BEGINNING TO EAT LUNCH. STRUGGLING SOME GETTING HAND TO MOUTH. AND DAUGHTER IN, PT TO BE DC'D TO [facility]. REQUESTED PRAYER, WILL FOLLOW NEEDED
--- NOTE | 2017-10-11 14:10 | NUR ---
CALLED REPORT TO [facility] TO [facility]. PHONE NUMBER GIVEN FOR QUESTIONS.
== END 2017-10-11 13:35 | disposition home or self-care (01) | DRG 194 ==
LOC: ED 20:51 → CCU 23:17 → MS 10-06 15:45
PROVIDERS: ADMIT Internal Medicine
DX: J09.X1 Influenza due to identified novel influenza A virus with pneumonia (principal); I69.351 Hemiplegia and hemiparesis following cerebral infarction affecting right dominant side; I25.10 Atherosclerotic heart disease of native coronary artery without angina pectoris; I10 Essential (primary) hypertension; E11.9 Type 2 diabetes mellitus without complications; Z79.84 Long term (current) use of oral hypoglycemic drugs; E78.5 Hyperlipidemia, unspecified; G20 Parkinson's disease; F02.80 Dementia in other diseases classified elsewhere, unspecified severity, without behavioral disturbance, psychotic disturbance, mood disturbance, and anxiety; Z95.1 Presence of aortocoronary bypass graft; Z79.82 Long term (current) use of aspirin
CPT/HCPCS: 36415; 71045; 80048; 80053; 81001; 83605; 85025; 87040; 87081; 87502; 87880; 93005; 93010; 94667; 94668; 97110; 97162; 97530; J1650; J2405; J7030; J7120

== ENCOUNTER 2018-03-29 13:30 | Inpatient (IN) | payer MEDICARE, BC ==
[~2018-03-29] VITALS: Ht 182.9 cm; Wt 89.8 kg
--- OUTSIDE RECORDS SUMMARY | ~2018-03-29 | XMS | Clinical Summary ---
Demographics + + + | Address | [address] | | | [place] [address] | + + + | Home Phone | | + + + | Preferred Language | Unknown | + + + | Marital Status | | + + + | Mu-Ism Affiliation | 1027 | + + + | Race | Unknown | + + + | Ethnic Group | Unknown | + + + Author + + + | Author | [facility] | | | and [place] | + + + | Organization | [facility] | | | and [...] Team Providers + +------+ + | Care Parking Attendant Name | Role | Phone | + [...] +--------+ +---------+ | MEDICARE | MEDICA | [id number] | Medica | [phone] | | | | RE | | re | [phone] | | | | PART A | | | | | | | AND B | | | | | + +--------+ +--------+ +---------+ | [place] | [place]BS | [id number] | Indemn | [phone] | | | | [place] | 2 [...] | Self | [birth year] | Home: | [address] | | | al/Fam | | 1930 | [phone] | [place] | | | [place] | | | [phone] | [phone] | + +--------+ +--------+ + +
--- OUTSIDE RECORDS SUMMARY | ~2018-03-29 | XMS | Clinical Summary ---
Demographics + + + | Address | [address] | | | [place] [address] | + + + | Home Phone | | + + + | Preferred Language | Unknown | + + + | Marital Status | | + + + | Buddhism Affiliation | 1027 | + + + | Race | Unknown | + + + | Ethnic Group | Unknown | + + + Author + + + | Author | [facility] | + + + | Organization | [facility] | + + + | Address | Unknown | + + + | Phone | Unavailable | + + + Support + + + + + | Name | Relationship | Address | Phone | + + + + + | Lori Lake | ECON | [address] | | | | | [place] | | | | | [address] | | + + + + + Care Team Providers + +------+ + | Care Tungsten Tender Name | Role | Phone | + [...]
[~2018-03-29 13:30] MED LIST changes: +GLUCOTROL5 MG PO
[2018-03-29] MEDS ORDERED: DOXYCYCLINE HY100 M3 PO (13:42)
[2018-03-29] MEDS ORDERED: ZESTRIL5 MG PO (13:44)
--- OUTSIDE RECORDS SUMMARY | 2018-03-29 14:18 | XMS | Clinical Summary ---
Demographics + + + | Address | [address] | | | [place] [address] | + + + | Home Phone | | + + + | Preferred Language | Unknown | + + + | Marital Status | | + + + | Yarsanism Affiliation | 1027 | + + + | Race | Unknown | + + + | Ethnic Group | Unknown | + + + Author + + + | Author | [facility] | | | and [place] | + + + | Organization | [facility] | | | and [place] | + + + | Address | Unknown | + + + | Phone | Unavailable | + + + Support + + + + + | Name | Relationship | Address | Phone | + + + + + | Jaya,Lori Steve | ECON | Unknown | | + + + + + | Jade Lui | ECON | [place] | | + + + + + Care Team Providers + +------+ + | Care Carburetor Mechanic Name | Role | Phone | + +------+ + | Rhonda Doctor | PP | | + +------+ + Allergies + + + + + + | Active Allergy | Reactions | Severity | Noted | Comments | | | | | Date | | + + + + + + | Donepezil | Nausea And Vomiting | Low | 01/23/20 | AKA Aricept | | | | | 16 | | + + + + + + Current Medications + + +---------+---------+------+------+-------+ | Prescription | Sig. | Disp. | Refills | Star | End | Statu | | | | | | t | Date | s | | | | | | Date | | | + + +---------+---------+------+------+-------+ | carvedilol (COREG) | Take 6.25 mg by | | | | | Activ | | 6.25 mg tablet | mouth 2 times daily | | | | | e | | | (with breakfast & | | | | | | | | dinner). | | | | | | + + +---------+---------+------+------+-------+ | glipiZIDE | Take 5 mg by mouth 2 | | | | | Activ | | (GLUCOTROL) 10 MG | times daily (before | | | | | e | | tablet | meals). | | | | | | + + +---------+---------+------+------+-------+ | Misc Natural | Take 20 mg by mouth | | | | | Activ | | Products (LUTEIN 20) | Daily. | | | | | e | | CAPS | | | | | | | + + +---------+---------+------+------+-------+ | Magnesium Chloride | Take 71.5 mg by | | | | | Activ | | JAKE | mouth 2 times daily. | | | | | e | + + +---------+---------+------+------+-------+ | metFORMIN | Take 500 mg by mouth | | | | | Activ | | (GLUCOPHAGE) 1000 MG | 2 times daily (with | | | | | e | | tablet | breakfast & | | | | | | | | dinner). | | | | | | + + +---------+---------+------+------+-------+ | simvastatin | Take 40 mg by mouth | | | | | Activ | | (ZOCOR) 40 mg tablet | nightly. | | | | | e | + + +---------+---------+------+------+-------+ | Cholecalciferol | Take 2,000 Units by | | | | | Activ | | (VITAMIN D-3) 2000 | mouth Daily. | | | | | e | | units CAPS | | | | | | | + + +---------+---------+------+------+-------+ | cephalexin | Take 1 capsule by | 20 | 0 | 07/1 | | Activ | | (KEFLEX) 500 mg | mouth 4 times daily. | capsule | | 6/20 | | e | | capsuleIndications: | Indications: UTI - | | | 16 | | | | UTI - Lower | Lower | | | | | | + + +---------+---------+------+------+-------+ Active Problems + + + | Problem | Noted Date | + + + | Acute blood loss anemia | 02/14/2016 | + + + | Gross hematuria | 02/14/2016 | + + + Social History + +-------+ +--------+ + | Tobacco Use | Types | Packs/Day | Years | Date | | | | | Used | | + +-------+ +--------+ + | Former Smoker | | | 7 | Quit: 08/02/1954 | + +-------+ +--------+ + + +---+---+---+ | Smokeless Tobacco: | | | | | Never Used | | | | + +---+---+---+ + + +---------+ + | Alcohol Use | Drinks/We | oz/Week | Comments | | | ek | | | + + +---------+ + | No | | | | + + +---------+ + + + + | Sex Assigned at | Date Recorded | | | | + + + | Not on file | | + + + Last Filed Vital Signs + + + + | Vital Sign | Reading | Time Taken | + + + + | Blood Pressure | 131/74 | 02/15/2016 0740 PDT | + + + + | Pulse | 98 | 02/15/20161207 PDT | + + + + | Temperature | 37.2 C (99 F) | 02/15/2016739 PDT | + + + + | Respiratory Rate | 18 | 02/15/20161207 PDT | + + + + | Oxygen Saturation | 98% | 02/15/20161207 PDT | + + + + | Inhaled Oxygen | - | - | | Concentration | | | + + + + | Weight | 79.5 kg (175 lb 4.3 | 02/11/2016 1634 PDT | | | oz) | | + + + + | Height | 180.3 cm (5' 11") | 02/11/20161633 PDT | + + + + | Body Mass Index | 24.44 | 02/11/20161633 PDT | + + + + Plan of Treatment + + + + + | Health Maintenance | Due Date | Last Done | Comments | + + + + + | Vaccine: | | | | | Dtap/Tdap/Td (1 - | 8 | | | | Tdap) | | | | + + + + + | Vaccine: Zoster (1 | | | | | of 2) | 9 | | | + + + + + | Vaccine: | | | | | Pneumococcal 65+ | 4 | | | | Low/Medium Risk (1 | | | | | of 2 - PCV13) | | | | + + + + + | Vaccine: Influenza | | | | | (#1) | 8 | | | + + + + + Results Not on filefrom Last 3 Months Insurance + +--------+ +--------+ +---------+ | Payer | Benefi | Subscriber | Type | Phone | Address | | | t Plan | ID | | | | | | / | | | | | | | Group | | | | | + +--------+ +--------+ +---------+ | MEDICARE | MEDICA | [id number] | Medica | [phone] | | | | RE | | re | [phone] | | | | PART A | | | | | | | AND B | | | | | + +--------+ +--------+ +---------+ | [place] | [id number] | Indemn | [phone] | | | | [place] | 2 | ity | [phone] | | | | MDCR | | | | | | | SUPPL | | | | | + +--------+ +--------+ +---------+ + +--------+ +--------+ + + | Guarantor Name | Accoun | Relation to | Date | Phone | Billing Address | | | t Type | Patient | of | | | | | | | | | | + +--------+ +--------+ + + | BELEN LAKE | Person | Self | [birth year] | Home: | [address] | | | al/Fam | | 1930 | [phone] | [place] | | | [place] | | [phone] | + +--------+ +--------+ + +
--- OUTSIDE RECORDS SUMMARY | 2018-03-29 14:18 | XMS | Clinical Summary ---
Demographics + + + | Address | [address] | | | [place] [address] | + + + | Home Phone | | + + + | Preferred Language | Unknown | + + + | Marital Status | | + + + | Jew Affiliation | 1027 | + + + | Race | Unknown | + + + | Ethnic Group | Unknown | + + + Author + + + | Author | [facility] | | | and [place] | + + + | Organization | [facility] | | | [...] Team Providers + +------+ + | Care Lining Cutter Name | Role | Phone | + [...] +--------+ +---------+ | MEDICARE | MEDICA | [id number] | Medica | [phone] | | | | RE | | re | [phone] | | | | PART A | | | | | | | AND B | | | | | + +--------+ +--------+ +---------+ | [place] | [id number] | Indemn | [phone] | | | | [place] | 2 [...] | Self | [birth year] | Home: | [address] | | | al/Fam | | 1930 | [phone] | [place] | | | [place]shan | | | [phone] | + +--------+ +--------+ + +
--- OUTSIDE RECORDS SUMMARY | 2018-03-29 14:18 | XMS | Clinical Summary ---
Demographics + + + | Address | [address] | | | [place] [address] | + + + | Home Phone | | + + + | Preferred Language | Unknown | + + + | Marital Status | | + + + | Roman Catholic Affiliation | 1027 | + + + | Race | Unknown | + + + | Ethnic Group | Unknown | + + + Author + + + | Author | [facility] | + + + | Organization | [facility] | + + + | Address | Unknown | + + + | Phone | Unavailable | + + + Support + + + + + | Name | Relationship | Address | Phone | + + + + + | Lori Lake | ECON | [address] | | | | | [place] | | | | | [address] | | + + + + + Care Team Providers + +------+ + | Care Blanket Cutting Machine Operator Name | Role | Phone | + +------+ + | Josemanuel Casillas MD | PP | | + +------+ + Allergies Not on File Current Medications Not on file Active Problems Not on file Social History + +-------+ +--------+------+ | Tobacco Use | Types | Packs/Day | Years | Date | | | | | Used | | + +-------+ +--------+------+ | Never Assessed | | | | | + +-------+ +--------+------+ + + + | Sex Assigned at | Date Recorded | | | | + + + | Not on file | | + + + Plan of Treatment Not on file Results Not on filefrom Last 3 Months"
--- OUTSIDE RECORDS SUMMARY | 2018-03-29 14:18 | XMS | Clinical Summary ---
Demographics + + + | Address | [address] | | | [place] [address] | + + + | Home Phone | | + + + | Preferred Language | Unknown | + + + | Marital Status | | + + + | Nondenominational Affiliation | 1027 | + + + | Race | Unknown | + + + | Ethnic Group | Unknown | + + + Author + + + | Author | [facility] | + + + | Organization | [facility] | + + + | Address | Unknown | + + + | Phone | Unavailable | + + + Support + + + + + | Name | Relationship | Address | Phone | + + + + + | Lori [place] | ECON | [address] | | | | | [place] | | | | | [address] | | + + + + + Care Team Providers + +------+ + | Care Song Plugger Name | Role | Phone | + [...]
[2018-03-30] MEDS ORDERED: METFORMIN HCL500 MG PO (15:09)
--- NOTE | 2018-03-30 16:35 | EKG ---
[facility] [address] [place] [address] Signed Sinus rhythm with premature supraventricular complexes and with occasional premature ventricular complexes Left axis deviation Nonspecific intraventricular block Inferior infarct (cited on or before 17-OCT-2016) Possible Anterolateral infarct (cited on or before 17-OCT-2016) Abnormal ECG When compared with ECG of 05-OCT-2017 21:58, premature ventricular complexes are now present premature supraventricular complexes are now present Nonspecific T wave abnormality now evident in Inferior leads T wave inversion now evident in Anterolateral leads Confirmed by KYLER MATHIS MD ([id number]) on 03/30/2018 4:35:26 PM Electronically Signed By: KYLER MATHIS MD 03/30/18 1635 PATIENT NAME: BELEN VERDUGO Electrocardiogram DATE OF : [birth year] PHYSICIAN: KYLER MATHIS MD REPORT #: [id number] REPORT IS CONFIDENTIAL AND NOT TO BE RELEASED WITHOUT AUTHORIZATION
--- NOTE | 2018-03-31 07:24 | CONS ---
[facility] [address], [place] [address] Signed DATE OF CONSULTATION: 03/30/2018 CHIEF COMPLAINT: Rectal bleeding. HISTORY OF PRESENT ILLNESS: Belen is an 88-year-old gentleman who [place] with his . He has had Parkinson disease and he has had multiple heart attacks along with a stroke, some small TIAs. He still has some right footdrop, but is able to use the right hand and he is also diabetic. He was on the toilet twice when he had a bowel movement. They saw bright red blood. He is also on Plavix and aspirin as well, which helps out for his porcine aortic valve replacement back in 2008 along with cardiac stents. He was brought in the emergency room then by the ambulance, where on rectal exam apparently there was some red blood, but no obvious external hemorrhoids. He has been admitted to the internal medicine service and hydrated. His hemoglobin went from 13.4 down to 12.4 and has been stable. Mean cell volume is good at 88. BUN is low at 10 and his albumin is good at 3.8. I have been asked to see him as a general surgeon on-call for consideration of colonoscopy. PAST MEDICAL HISTORY: Urinary tract infection, hypertension, hypercholesterolemia, Parkinson disease, diabetes, urinary incontinence, multiple myocardial infarctions, stroke with residual right footdrop, and several TIAs. PAST SURGICAL HISTORY: Includes the CABG x3, the cardiac stents x2, the porcine aortic valve replacement in 2008 at [facility], his TURP and his back surgery. SOCIAL HISTORY: He does not smoke or drink. He is to his and [place] He is retired from the post office. He is also a . They prefer the [facility] Dr. Shadi Carrasquillo is his primary care provider. They do have several children. FAMILY HISTORY: Daughter has colonic polyps. She is here today. REVIEW OF SYSTEMS: He had 10 systems reviewed and he does have a residual right footdrop. ALLERGIES: Carbidopa, levodopa, tamsulosin, donepezil, and atorvastatin. Electronically Signed By: YOVANA KAHN MD 03/31/18 0724 PATIENT NAME: BELEN VERDUGO CONSULTATION DATE OF : [birth year] REPORT #: [id number] PHYSICIAN: YOVANA KAHN MD PCP: CARLOS EDUARDO CARRASQUILLO MD REPORT IS CONFIDENTIAL AND NOT TO BE RELEASED WITHOUT AUTHORIZATION [facility] [address], [place] [address] Signed MEDICATIONS: Include doxycycline, carvedilol, vitamin D, Ocuvite, nitroglycerin, Plavix, aspirin, magnesium, metformin, albuterol, simvastatin, glipizide, and lisinopril. PHYSICAL EXAMINATION: VITAL SIGNS: Blood pressure is 134/64, his heart rate is 74, his respiratory rate 25, his temperature is 98.6. He is 94% on 2 L nasal cannula. He is 6 feet tall, 89 kg. GENERAL: Belen is an 88-year-old gentleman, sitting supine in semi-erect in his ICU bed. His and daughter are at the bedside. He is alert and awake and interactive. He does answer slow, but appropriately. He has good function of both his hands. RESPIRATORY SYSTEM: His lungs are clear to auscultation bilaterally. HEART: Regular rate and rhythm without murmur. GI: The abdomen is benign. RECTAL: Exam is not repeated currently. LABORATORY DATA: His white blood cell count was 13.1, it is now 10.1; hemoglobin initially 13.4, it is now 12.4. His sodium has dropped a little to 129, BUN is good at 10 with a creatinine 0.79. INR 0.9. Liver function tests are negative. Albumin is good at 3.8. His mean cell volume is good at 88, neutrophils were 80. RADIOGRAPHIC STUDIES: None. ASSESSMENT AND PLAN: Belen is an 88-year-old gentleman with significant medical issues as listed above. He is also on Plavix and aspirin, and he has had blood twice in one day with bowel movements. He has been in the hospital now for day and he is generally stable. Belen and his tells me he probably had endoscopy that has been many years ago. He can't remember anything recently. I reviewed with him the nature of the colonoscopy along with its risks and benefits. We also reviewed the need for the bowel prep. We also reviewed the need for an anesthesia provider to help us with increased monitoring airway and sedation with propofol given his advanced age and medical history. He and his family had expressed understanding and wished to proceed. We will go ahead and add him on tomorrow to follow. Yovana Kahn MD ALB/MODL /[id number] Electronically Signed By: YOVANA KAHN MD 03/31/18 0724 PATIENT NAME: BELEN VERDUGO CONSULTATION DATE OF : [birth year] REPORT #: [id number] PHYSICIAN: YOVANA KAHN MD PCP: CARLOS EDUARDO CARRASQUILLO MD REPORT IS CONFIDENTIAL AND NOT TO BE RELEASED WITHOUT AUTHORIZATION [facility] [address] [place] [address] Signed cc: MD Yovana Ceballos MD Copies: YOVANA KAHN MD ~ Electronically Signed By: YOVANA KAHN MD 03/31/18 0724 PATIENT NAME: BELEN VERDUGO CONSULTATION DATE OF : [birth year] REPORT #: [id number] PHYSICIAN: YOVANA KAHN MD PCP: CARLOS EDUARDO CARRASQUILLO MD REPORT IS CONFIDENTIAL AND NOT TO BE RELEASED WITHOUT AUTHORIZATION
[2018-03-31] MEDS ORDERED: NITROFURANTOIN100 M1 PO (08:13)
--- NOTE | 2018-03-31 19:01 | OR ---
[facility] [address], [place] [address] Signed DATE OF OPERATION: 03/31/2018 SURGEON: Yovana Kahn MD PREOPERATIVE DIAGNOSIS: Rectal bleeding x2. POSTOPERATIVE DIAGNOSIS: Bleeding moderate internal and external hemorrhoids. PROCEDURE PERFORMED: Colonoscopy without biopsy. ESTIMATED BLOOD LOSS: None. INDICATIONS FOR PROCEDURE: Belen is an 88-year-old gentleman with significant Parkinson's disease as well as recurrent TIAs and a stroke that affected his right side. He still has right footdrop, but can use his right hand. Therefore, he can feed himself. He was known to have diabetes as well as multiple myocardial infarctions. Nevertheless, he still lives at home with his in their house about 4[place]5 miles outside of [facility]. He has had his open heart surgery with two stents and his porcine aortic valve was placed in 2008. Consequently, he is on Plavix and aspirin. She noticed he had a couple of bowel movements and there was quite a bit of blood with 2nd bowel movement. She had the ambulance bring him into the emergency room. Obviously, there was blood on rectal exam and so he was admitted to the Internal Medicine Service. His hemoglobin has been really steady around 12.5 to 13.5. BUN was low at 10. His INR was 0.9. His albumin is 3.8. I was asked by the Internal Medicine Service to come see him. I met with Belen and his and his daughter and we had a long discussion regarding his current situation with the bright red blood, it was most likely a lower GI bleed down around the anus. He said he has not had an endoscopy in many many years. After a long discussion, Belen and his family wanted to pursue a colonoscopy. Consequently, we put him to our standard bowel prep and again, he did fairly well actually with that. I had reviewed with Belen and the family the nature of the colonoscopy along with its risks including, but not limited to gas bloating, crampy abdominal pain, bleeding, perforation requiring surgery, and missed diagnosis. Also, because of his advanced age and advanced medical issues, we did have an anesthesia provider help us with increased monitoring sedation with propofol. They had expressed understanding and wished to proceed. Electronically Signed By: YOVANA KAHN MD 03/31/18 1901 PATIENT NAME: BELEN VERDUGO OPERATIVE REPORT DATE OF : [birth year] REPORT #: [id number] PHYSICIAN: YOVANA KAHN MD PCP: VEE CARRASQUILLO MD REPORT IS CONFIDENTIAL AND NOT TO BE RELEASED WITHOUT AUTHORIZATION [facility] [address], [place] [address] Signed PROCEDURE NOTE: Belen was taken into our endoscopy suite and placed in the left lateral decubitus position. He is quite stiff with his neck and upper torso from his Parkinson's. We gave him appropriate padding and monitoring with pillows and so forth. He was sedated with propofol per our nurse complex care nurse. A digital rectal exam was performed and he is getting some breakdown around his perineum and his perianal area from sitting in his wheelchair. He clearly has some external hemorrhoids. No obvious mass was palpated. The adult colonoscope was then introduced and advanced under direct visualization of camera. Belen is somewhat tall with long arms and legs and his colon is long and redundant. It took us some abdominal compression, we finally got the scope all the way to the cecum. His prep was moderate. There were several areas of liquid particulate stool matter, I could not quite irrigate and suction out completely. The scope was slowly withdrawn. We saw nice green bile in his cecum as we came through the colon. We found no other pathology including diverticulosis or any AV malformations. There was no blood anywhere in the colon itself. Once we got back down the rectum, there was little blood in the rectum. As we looked around, it was from his internal hemorrhoids. The scope had been retroflexed. He does have moderate component to his hemorrhoids. After this, the gas was suctioned out and the colonoscope removed. It looks like Belen is going to need some hemorrhoid cream. He will have to decide whether he wants to hold the Plavix and aspirin for a few days to try let hemorrhoids heal or discontinue as is. I think currently, I would just leave him on the Plavix and aspirin to see if the hemorrhoids do not heal on their own with a little cream. RECOMMENDATIONS: Belen will be returned to his room and he will be placed on some hydrocortisone cream for his hemorrhoids. I think currently, he should stay on the Plavix and aspirin unless he has continued troubles and then he could just stay off that for a week or 10 days and go right back on his anticoagulation and see if the hemorrhoids have healed by then. MD BOO Zepeda/MAXIMOL /[id number] cc: Vee Carrasquillo MD Electronically Signed By: YOVANA KAHN MD 03/31/18 1901 PATIENT NAME: BELEN VERDUGO OPERATIVE REPORT DATE OF : [birth year] REPORT #: [id number] PHYSICIAN: YOVANA KAHN MD PCP: VEE CARRASQUILLO MD REPORT IS CONFIDENTIAL AND NOT TO BE RELEASED WITHOUT AUTHORIZATION [address] [address] Signed Yovana Kahn MD Patient's Chart Copies: YOVANA KAHN MD ~ Electronically Signed By: YOVANA KAHN MD 03/31/18 1901 PATIENT NAME: BELEN VERDUGO OPERATIVE REPORT DATE OF : [birth year] REPORT #: [id number] PHYSICIAN: YOVANA KAHN MD PCP: VEE CARRASQUILLO MD REPORT IS CONFIDENTIAL AND NOT TO BE RELEASED WITHOUT AUTHORIZATION
== END 2018-03-31 14:35 | disposition home or self-care (01) | DRG 378 ==
LOC: ED 13:30 → CCU 16:07 → MS 03-31 07:15
PROVIDERS: Colon & Rectal Surgery; ADMIT Internal Medicine
PROC: 0DJD8ZZ Inspection of Lower Intestinal Tract, Via Natural or Artificial Opening Endoscopic (ICD-10-PCS; principal; 2018-03-31 10:45)
DX: K62.5 Hemorrhage of anus and rectum (principal); D62 Acute posthemorrhagic anemia; I10 Essential (primary) hypertension; E78.5 Hyperlipidemia, unspecified; G20 Parkinson's disease; K64.4 Residual hemorrhoidal skin tags; K64.8 Other hemorrhoids; E11.9 Type 2 diabetes mellitus without complications; I25.10 Atherosclerotic heart disease of native coronary artery without angina pectoris; Z86.73 Personal history of transient ischemic attack (TIA), and cerebral infarction without residual deficits; Z79.01 Long term (current) use of anticoagulants; Z79.84 Long term (current) use of oral hypoglycemic drugs; Z79.82 Long term (current) use of aspirin
CPT/HCPCS: 36415; 80048; 80053; 83735; 84100; 85018; 85025; 85610; 86850; 86900; 86901; 93005; 93010; 96360; 99285; J1815; J2405; J2704; J3475; J7030; J7040

== ENCOUNTER 2018-08-30 15:22 | Emergency (ER) | payer MEDICARE, BC ==
[~2018-08-30] VITALS: Ht 182.9 cm; Wt 89.8 kg
[~2018-08-30 15:22] MED LIST changes: +AZITHROMYCIN250 MG PO; +DOXYCYCLINE HY100 M3 PO; +KEFLEX500 MG PO; +MIRALAX17 GM PO; +NITROFURANTOIN100 M1 PO; +ROBAFEN-DM SYR118 ML PO; +ZESTRIL5 MG PO
--- OUTSIDE RECORDS SUMMARY | 2018-08-30 15:24 | XMS ---
PreManage Notification: BELEN VERDUGO Security Machine Tracer Events No recent Security Events currently on file CRITERIA MET - Group Notification - [facility] - POL CARE PROVIDERS Raj Carrasquillo Internal Medicine: Pulmonary Disease 03/30/2018-Current PHONE: Unknown DR AD HERNADNEZ Primary Care Current PHONE: [phone] Dick Casillas MD Primary Care Current PHONE: Unknown [facility] [place] [facility] or [place] 08/14/2016-Current HEALTH AND HOSPICE PHONE: [phone] Guidelines Source: [facility] Guidelines Date: 03/31/2018 Care Coordination: PATIENT IS UNDER SERVICES AT [facility] DEPARTMENT.\T\nbsp; IF PATIENT IS SEEN IN THE ED, PLEASE NOTIFY THEM AT [phone].\T\nbsp; IF AFTER HOURS OR ON WEEKENDS PLEASE CALL SWITCHBOARD AT [phone] AND HAVE ON-CALL RN NOTIFIED. Care History Medical/Surgical 03/30/2018 [facility] - Patient is currently established with [facility]. If patient is seen in the ED during business hours. Please contact CHWs at [facility]. - Patient admitted to [facility] services as of 02/28/18. Please contact [facility] [phone] if patient is seen in the ED. Care Recommendation: This patient has had 5 or more Emergency Department visits in the last 12 months.\T\nbsp; Patient requires education on the scope and purpose of the ED as an acute care provider not a Primary Care Provider and should not be utilized for chronic conditions.\T\nbsp; These are guidelines and the provider should exercise clinical judgment when providing care. E.D. VISIT COUNT (12 MO.) 5 [facility] [place] [facility]. TOTAL 5 NOTE: Visits indicate total known visits. ED/UCC VISIT TRACKING (12 MO.) 08/30/2018 15:22 [facility] [place] TYPE: Emergency COMPLAINT: - GLF 05/09/2018 19:13 [facility] [place] TYPE: Emergency COMPLAINT: - POSS UTI DIAGNOSES: - Unspecified dementia without behavioral disturbance - Other fci (current) drug therapy - Disorientation, unspecified - Allergy status to other drugs, medicaments and biological substances status - Parkinson's disease - home paraprofessional (current) use of oral hypoglycemic drugs - Essential (primary) hypertension - Dementia in other diseases classified elsewhere without behavioral disturbance - Urinary tract infection, site not specified - Pressure ulcer of sacral region, unspecified stage - Type 2 diabetes mellitus without complications 04/16/2018 22:59 [facility] [place] TYPE: Emergency COMPLAINT: - WEAKNESS 03/29/2018 13:31 [facility] [place] TYPE: Emergency COMPLAINT: - RECTAL BLEEDING 10/05/2017 20:51 [facility] Whitney [place] TYPE: Emergency COMPLAINT: - ALTERED LOC INPATIENT VISIT TRACKING (12 MO.) 04/16/2018 23:00 [facility] Whitney [place] TYPE: Medical Surgical COMPLAINT: - BRONCHITIS DIAGNOSES: - Unspecified urinary incontinence - Essential (primary) hypertension - Weakness - Old myocardial infarction - Personal history of transient ischemic attack (TIA), and cerebral infarction without residual deficits - Acute bronchitis, unspecified - Parkinson's disease - Type 2 diabetes mellitus without complications - Presence of coronary angioplasty implant and graft - home paraprofessional (current) use of antithrombotics/antiplatelets - Other rehabilitation program coordinator (current) drug therapy - Allergy status to other drugs, medicaments and biological substances status - Hyperlipidemia, unspecified - Allergy status to other antibiotic agents status - FCI (current) use of oral hypoglycemic drugs 03/29/2018 16:07 [facility] Whitney [place] TYPE: Medical Surgical COMPLAINT: - ACUTE GI BLEED DIAGNOSES: - Essential (primary) hypertension - 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 - Type 2 diabetes mellitus without complications - Parkinson's disease - Acute posthemorrhagic anemia - Hemorrhage of anus and rectum - Hyperlipidemia, unspecified - Residual hemorrhoidal skin tags - Other hemorrhoids - Personal history of transient ischemic attack (TIA), and cerebral infarction without residual deficits - FCI (current) use of oral hypoglycemic drugs - home paraprofessional (current) use of anticoagulants - home paraprofessional (current) use of aspirin 10/05/2017 23:17 [facility] Whitney [place] TYPE: Medical Surgical COMPLAINT: - PNEUMONIA, INFLUENZA DIAGNOSES: - Essential (primary) hypertension - Fever, unspecified - Hemiplegia and hemiparesis following cerebral infarction affecting right dominant side - Type 2 diabetes mellitus without complications - Influenza due to identified novel influenza A virus with pneumonia - 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
== END 2018-08-30 19:00 | disposition home or self-care (01) ==
LOC: ED 15:22
DX: I71.4 Abdominal aortic aneurysm, without rupture (principal); W18.30XA Fall on same level, unspecified, initial encounter; I10 Essential (primary) hypertension; E11.9 Type 2 diabetes mellitus without complications; Z88.8 Allergy status to other drugs, medicaments and biological substances; Z79.899 Other long term (current) drug therapy; Z79.84 Long term (current) use of oral hypoglycemic drugs
CPT/HCPCS: 71045; 72100; 73030; 73502; 99283-25

== ENCOUNTER 2018-09-21 17:19 | Inpatient (IN) | payer MEDICARE, BC ==
[~2018-09-21] VITALS: Ht 182.9 cm; Wt 77.7 kg
--- OUTSIDE RECORDS SUMMARY | 2018-09-21 17:22 | XMS ---
PreManage Notification: BELEN VERDUGO Security Internet Sales Associate Events No recent Security Events currently on file CRITERIA MET - Group Notification - [facility] - Has Care Guidelines - POLST - [facility] - 2 Visits in 30 Days CARE PROVIDERS CONSTANCE SMITH Family Medicine 08/31/2018-Current PHONE: Unknown Raj Carrasquillo Internal Medicine: Pulmonary Disease 03/30/2018-Current PHONE: Unknown DR AD HERNANDEZ Primary Care Current PHONE: [phone] Dick Casilals MD Primary Care Current PHONE: Unknown [facility] HOME Case or [employer] 08/14/2016-Current HEALTH AND HOSPICE PHONE: [phone] Jovanny has no Care Guidelines for this patient. Care History Medical/Surgical 03/30/2018 [facility] - Patient is currently established with [facility]. If patient is seen in the ED during business hours. Please contact CHWs at [facility]. - Patient admitted to [facility] services as of 02/28/18. [facility] [phone] if patient is seen in the ED. [...] providing care. [facility] NOTE: Visits indicate total known visits. ED/UCC VISIT TRACKING (12 MO.) 09/21/2018 17:19 [facility] [place] TYPE: Emergency COMPLAINT: - HIP PAIN/FALL 08/30/2018 15:22 [facility] [place] TYPE: Emergency COMPLAINT: - GLF DIAGNOSES: - Abdominal aortic aneurysm, without rupture - Essential (primary) hypertension - longterm (current) use of oral hypoglycemic drugs - Pain in left shoulder - Other longterm (current) drug therapy - Allergy status to other drugs, medicaments and biological substances status - Fall on same level, unspecified, initial encounter - Type 2 diabetes mellitus without complications 05/09/2018 19:13 [facility] Whitney [place] TYPE: Emergency COMPLAINT: - POSS UTI DIAGNOSES: - Unspecified dementia without behavioral disturbance - Other terminal clerk (current) drug therapy - Disorientation, unspecified - Allergy status to other drugs, medicaments and biological substances status - Parkinson's disease - marine oil terminal superintendent (current) use of oral hypoglycemic drugs - [...] of coronary angioplasty implant and graft - marine oil terminal superintendent (current) use of antithrombotics/antiplatelets - Other terminal clerk (current) drug therapy - Allergy status to other drugs, medicaments and biological substances status - Hyperlipidemia, unspecified - Allergy status to other antibiotic agents status - longterm (current) use of oral hypoglycemic drugs 03/29/2018 16:07 [facility] Whitney [place] TYPE: Medical Surgical COMPLAINT: - ACUTE GI BLEED DIAGNOSES: - Essential (primary) hypertension - Atherosclerotic heart disease of platinum coronary artery without angina pectoris - Type 2 diabetes mellitus without complications - Parkinson's disease - Acute posthemorrhagic anemia - Hemorrhage of anus and rectum - Hyperlipidemia, unspecified - Residual hemorrhoidal skin tags - Other hemorrhoids - Personal history of transient ischemic attack (TIA), and cerebral infarction without residual deficits - longterm (current) use of oral hypoglycemic drugs - longterm (current) use of anticoagulants - longterm (current) use of aspirin 10/05/2017 23:17 [facility]ATER[facility] Whitney [place] TYPE: Medical Surgical COMPLAINT: - PNEUMONIA, INFLUENZA DIAGNOSES: - Essential (primary) hypertension - Fever, unspecified - Hemiplegia and hemiparesis following cerebral infarction affecting right dominant side - Type 2 diabetes mellitus without complications - Influenza due to identified novel influenza A virus with pneumonia - Atherosclerotic heart disease of platinum coronary artery without angina pectoris - marine oil terminal superintendent (current) use of oral hypoglycemic drugs - marine oil terminal superintendent (current) use of aspirin - Dementia in other diseases classified elsewhere without behavioral disturbance - Presence of aortocoronary bypass graft - Hyperlipidemia, unspecified - Parkinson's disease [email or web address]
[2018-09-23] MEDS ORDERED: ANUCORT-HC25 MG PR (15:32)
[2018-09-24] MEDS ORDERED: TYLENOL EXTRA500 MG PO (09:31)
[2018-09-24] MEDS ORDERED: CARVEDILOL6.25 MG PO (09:31)
[2018-09-24] MEDS ORDERED: SODIUM CHLORIDE1 GM PO (09:32)
[2018-09-24] MEDS ORDERED: LIDOCAINE1 EACH TD (09:33)
== END 2018-09-24 12:00 | DRG 640 ==
LOC: ED 17:19 → MS 23:10
PROVIDERS: ADMIT Internal Medicine
DX: E86.0 Dehydration (principal); G93.41 Metabolic encephalopathy; E22.2 Syndrome of inappropriate secretion of antidiuretic hormone; I69.951 Hemiplegia and hemiparesis following unspecified cerebrovascular disease affecting right dominant side; G20 Parkinson's disease; F02.80 Dementia in other diseases classified elsewhere, unspecified severity, without behavioral disturbance, psychotic disturbance, mood disturbance, and anxiety; S73.102A Unspecified sprain of left hip, initial encounter; W19.XXXA Unspecified fall, initial encounter; I10 Essential (primary) hypertension; I71.4 Abdominal aortic aneurysm, without rupture; I25.10 Atherosclerotic heart disease of native coronary artery without angina pectoris; E11.9 Type 2 diabetes mellitus without complications; E78.5 Hyperlipidemia, unspecified; E83.42 Hypomagnesemia; R13.12 Dysphagia, oropharyngeal phase; Z87.311 Personal history of (healed) other pathological fracture; Z88.8 Allergy status to other drugs, medicaments and biological substances; Z88.1 Allergy status to other antibiotic agents; Z98.61 Coronary angioplasty status; Z95.1 Presence of aortocoronary bypass graft; Z79.84 Long term (current) use of oral hypoglycemic drugs; Z79.02 Long term (current) use of antithrombotics/antiplatelets; Z79.899 Other long term (current) drug therapy
CPT/HCPCS: 36415; 71045; 74177; 80048; 80053; 81001; 83735; 83930; 83935; 84550; 85025; 97110; 97163; 97166; 97530; 99285-25; J1650; J1815; J3475; J7030; J7040; Q9967

== ENCOUNTER 2019-01-07 10:46 | Emergency (ER) | payer MEDICARE, BC ==
[~2019-01-07] VITALS: Ht 182.9 cm; Wt 77.6 kg
--- OUTSIDE RECORDS SUMMARY | ~2019-01-07 | XMS | Clinical Summary ---
Demographics + + + | Address | [address] | | | [place] [address] | + + + | Home Phone | | + + + | Preferred Language | Unknown | + + + | Marital Status | | + + + | Anabaptist Affiliation | 1027 | + + + | Race | Unknown | + + + | Ethnic Group | Unknown | + + + Author + + + | Author | [email or web address] | + + + | Organization | [facility] [email or web address] [facility] | + + + | Address | Unknown | + + + | Phone | Unavailable | + + + Support + + + + + | Name | Relationship | Address | Phone | + + + + + | Lori Lake | ECON | [address] | | | | | [place] | | | | | [address] | | + + + + + Care Team Providers + +------+ + | Care Regulatory Associate Name | Role | Phone | + [...]
--- OUTSIDE RECORDS SUMMARY | ~2019-01-07 | XMS | Clinical Summary ---
Demographics + + + | Address | [address] | | | [place] [address] | + + + | Home Phone | | + + + | Preferred Language | Unknown | + + + | Marital Status | | + + + | Methodist Affiliation | 1027 | + + + | Race | Unknown | + + + | Ethnic Group | Unknown | + + + Author + + + | Author | [facility] | | | and [place] | + + + | Organization | [facility] | | | and [...] Team Providers + +------+ + | Care Tugboat Dispatcher Name | Role | Phone | + [...] | + + + + + + Medications + + + +---------+------+------+-------+ | Medication | Sig | Dispensed | Refills | Star | End | Statu | | | | | | t | Date | s | | | | | | Date | | | + + + +---------+------+------+-------+ | carvedilol (COREG) | Take 6.25 mg by | | 0 | | | Activ | | 6.25 mg tablet | mouth 2 times daily | | | | | e | | | (with breakfast & | | | | | | | | dinner). | | | | | | + + + +---------+------+------+-------+ | glipiZIDE | Take 5 mg by mouth 2 | | 0 | | | Activ | | (GLUCOTROL) 10 MG | times daily (before | | | | | e | | tablet | meals). | | | | | | + + + +---------+------+------+-------+ | Misc Natural | Take 20 mg by mouth | | 0 | | | Activ | | Products (LUTEIN 20) | Daily. | | | | | e | | CAPS | | | | | | | + + + +---------+------+------+-------+ | Magnesium Chloride | Take 71.5 mg by | | 0 | | | Activ | | JAKE | mouth 2 times daily. | | | | | e | + + + +---------+------+------+-------+ | metFORMIN | Take 500 mg by mouth | | 0 | | | Activ | | (GLUCOPHAGE) 1000 MG | 2 times daily (with | | | | | e | | tablet | breakfast & | | | | | | | | dinner). | | | | | | + + + +---------+------+------+-------+ | simvastatin | Take 40 mg by mouth | | 0 | | | Activ | | (ZOCOR) 40 mg tablet | nightly. | | | | | e | + + + +---------+------+------+-------+ | Cholecalciferol | Take 2,000 Units by | | 0 | | | Activ | | (VITAMIN D-3) 2000 | mouth Daily. | | | | | e | | units CAPS | | | | | | | + + + +---------+------+------+-------+ | cephalexin | Take 1 capsule by | 20 | 0 | 07/1 | | Activ | | (KEFLEX) 500 mg | mouth 4 times daily. | capsule | | 6/20 | | e | | capsuleIndications: | Indications: UTI - | | | 16 | | | | UTI - Lower | Lower | | | | | | + + + +---------+------+------+-------+ Active Problems + + + | Problem [...] on file | | + + + + + + + | Job Start Date | Occupation | Industry | + + + + | Not on file | Not on file | Not on file | + + + + + + + + | Travel History | Travel Start | Travel End | + + + + + + | No recent travel history available. | + + Last Filed Vital Signs + + + + | Vital Sign | Reading | Time Taken | + + + + | Blood Pressure | 131/74 | 02/15/2016 0740 PDT | + + + + | Pulse | 98 | 02/15/2016 1208 PDT | + + + + | [...] | 79.5 kg (175 lb 4.3 | 02/11/20161633 PDT | | | oz) | | + + + + | Height | 180.3 cm (5' 11") | 02/11/20161633 PDT | + + + + | Body Mass Index | 24.44 | 02/11/2016 1634 PDT | + + + + Plan [...] Vaccine: Influenza | | | | | (Season Ended) | 9 | | | + + + + + Results Not on filefrom Last 3 Months Insurance + +--------+ +--------+ +---------+--------+ | Payer | Benefi | Subscriber | Effect | Phone | Address | Type | | | t Plan | ID | josiah | | | | | | / | | Dates | | | | | | Group | | | | | | + +--------+ +--------+ +---------+--------+ | MEDICARE | MEDICA | [id number] | 03/02/19 | [phone] | | Medica | | | RE | | 94-Pre | 5 | | re | | | PART A | | sent | | | | | | AND B | | | | | | + +--------+ +--------+ +---------+--------+ | [place]BS [place] | BCBS | [id number] | 08/02/19 | [phone] | | Indemn | | | [place] | 2 | 11-Pre | 9 | | ity | | | MDCR | | sent | | | | | | SUPPL | | | | | | + +--------+ +--------+ +---------+--------+ + +--------+ +--------+ + + | Guarantor Name | Accoun | Relation to | Date | Phone | Billing Address | | | t Type | Patient | of | | | | | | | | | | + +--------+ +--------+ + + | Harinder Lake | Person | Self | [birth year] | [address] | | | al/Fam | | 1930 | [phone] | [place] | | | [place] | | | [address] ([place]) | [address] | + +--------+ +--------+ + + Advance Directives Patient has advance care planning documents, and code status on file. For more information, please contact:[facility] and [place] [address] + + + + + | Code Status | Date | Date | Comments | | | Activated | Inactivated | | + + + + + | Full Code | 02/13/2016 | 02/15/2016 | | | | 8:15 | 20:27 | | + + + + + + + + +---+ | | | | | + + + +---+ | Full Code | 01/24/2016 | 01/27/2016 | | | | 18:27 | 13:43 | | + + + +---+
--- OUTSIDE RECORDS SUMMARY | ~2019-01-07 | XMS | Clinical Summary ---
Demographics + + + | Address | [address] | | | [place] [address] | + + + | Home Phone | | + + + | Preferred Language | Unknown | + + + | Marital Status | | + + + | Bahai Affiliation | 1027 | + + + | Race | Unknown | + + + | Ethnic Group | Unknown | + + + Author + + + | Author | [facility] | | | and [place] | + + + | Organization | [facility] | | [...] Team Providers + +------+ + | Care Media Center Specialist Name | Role | Phone | + [...] +--------+ +---------+--------+ | MEDICARE | MEDICA | [id number] | 03/02/19 | [phone] | | Medica | | | RE | | 94-Pre | 5 | | re | | | PART A | | sent | | | | | | AND B | | | | | | + +--------+ +--------+ +---------+--------+ | BCBS [place] | BCBS | [id number] | 08/02/19 | [phone] | | Indemn [...] Person | Self | [birth year] | [address] | | | al/Fam | | 1930 | [phone] | [place] | | | afshan | | | 5 ([place]) | [address] | + +--------+ +--------+ + + Advance Directives Patient has advance care planning documents, and code status on file. For more information, please contact:[facility] and [place] [address] + + + + + | Code [...]
--- OUTSIDE RECORDS SUMMARY | ~2019-01-07 | XMS | Clinical Summary ---
Demographics + + + | Address | [address] | | | [place] [address] | + + + | Home Phone | | + + + | Preferred Language | Unknown | + + + | Marital Status | | + + + | Christianity Affiliation | 1027 | + + + | Race | Unknown | + + + | Ethnic Group | Unknown | + + + Author + + + | Author | [facility] | + + + | Organization | [facility] [facility] | + + + | Address | Unknown | + + + | Phone | Unavailable | + + + Support + + + + + | Name | Relationship | Address | Phone | + + + + + | Lori [place] | ECON | [address] | | | | | [place] | | | | | [address] | | + + + + + Care Team Providers + +------+ + | Care Customer Energy Specialist Name | Role | Phone | [...]
[~2019-01-07 10:46] MED LIST changes: +ANUCORT-HC25 MG PR; +GLUCOTROL XL5 MG PO; -GLUCOTROL5 MG PO; +LIDOCAINE1 EACH TD; +SODIUM CHLORIDE1 GM PO
[2019-01-07] MEDS ORDERED: ASPIRIN81 MG PO (11:00)
[2019-01-07] MEDS ORDERED: NORCO 5-325 TA1 EACH PO (13:55)
== END 2019-01-07 14:34 | disposition home or self-care (01) ==
LOC: ED 10:46
DX: S39.012A Strain of muscle, fascia and tendon of lower back, initial encounter (principal); G20 Parkinson's disease; I10 Essential (primary) hypertension; E11.9 Type 2 diabetes mellitus without complications; I25.2 Old myocardial infarction; Z86.73 Personal history of transient ischemic attack (TIA), and cerebral infarction without residual deficits; Z88.8 Allergy status to other drugs, medicaments and biological substances; Z79.84 Long term (current) use of oral hypoglycemic drugs; Z79.82 Long term (current) use of aspirin; Z79.899 Other long term (current) drug therapy; W01.0XXA Fall on same level from slipping, tripping and stumbling without subsequent striking against object, initial encounter
CPT/HCPCS: 71045; 72131; 80053; 81001; 85025; 85610; 96361; 96365; 96366; 99285-25

== ENCOUNTER 2019-01-08 14:18 | Observation (INO) | payer MEDICARE, BC ==
[~2019-01-08] VITALS: Ht 182.9 cm; Wt 82.6 kg
--- OUTSIDE RECORDS SUMMARY | ~2019-01-08 | XMS | Clinical Summary ---
Demographics + + + | Address | [address] | | | [place] [address] | + + + | Home Phone | | + + + | Preferred Language | Unknown | + + + | Marital Status | | + + + | Restorationism Affiliation | 1027 | + + + | Race | Unknown | + + + | Ethnic Group | Unknown | + + + Author + + + | Author | [facility] | + + + | Organization | [facility] [facility] | + + + | Address | Unknown | + + + | Phone | Unavailable | + + + Support + + + + + | Name | Relationship | Address | Phone | + + + + + | Lori [place] | ECON | [address] | | | | | [place] | | | | | [address] | | + + + + + Care Team Providers + +------+ + | Care Executive Vice President Of Sales Name | Role | Phone | + [...]
--- OUTSIDE RECORDS SUMMARY | ~2019-01-08 | XMS | Clinical Summary ---
Demographics + + + | Address | [address] | | | [place] [address] | + + + | Home Phone | | + + + | Preferred Language | Unknown | + + + | Marital Status | | + + + | Evangelical Affiliation | 1027 | + + + | Race | Unknown | + + + | Ethnic Group | Unknown | + + + Author + + + | Author | [facility] | | | and [place] | + + + | Organization | [facility] | | | [...] Team Providers + +------+ + | Care Disability Rater Name | Role | Phone | + [...] +--------+ +---------+--------+ | MEDICARE | MEDICA | [id number] | 03/02/19 | [phone] | | Medica | | | RE | | 94-Pre | 5 | | re | | | PART A | | sent | | | | | | AND B | | | | | | + +--------+ +--------+ +---------+--------+ | [place] | BCBS | [id number] | 08/02/19 | [phone] | | Indemn [...] Person | Self | [birth year] | [address] | | | al/Fam | | 1930 | [phone] | [place] | | | [place]shan | | | 5 ([place]) | [phone] | + +--------+ +--------+ + + Advance Directives Patient has advance care planning documents, and code status on file. For more information, please [facility] [place] [address] + + + + + | Code [...]
--- OUTSIDE RECORDS SUMMARY | ~2019-01-08 | XMS | Clinical Summary ---
Demographics + + + | Address | [address] | | | [place] [address] | + + + | Home Phone | | + + + | Preferred Language | Unknown | + + + | Marital Status | | + + + | Sikh Affiliation | 1027 | + + + [...] Team Providers + +------+ + | Care Sewage Treatment Plant Operator Name | Role | Phone | [...] +--------+ +---------+--------+ | MEDICARE | MEDICA | [id number] | 03/02/19 | [phone] | | Medica | | | RE | | 94-Pre | 5 | | re | | | PART A | | sent | | | | | | AND B | | | | | | + +--------+ +--------+ +---------+--------+ | [place]BS [place] | BCBS | [id number] | 08/02/19 | [phone] | | Indemn [...] Person | Self | [birth year] | [address] | | | al/Fam | | 1930 | [phone] | [place] | | | afshan | | | 5 ([place]) | [phone] | + +--------+ +--------+ + + Advance Directives Patient has advance care planning documents, and code status on file. For more information, please contact:[facility] and [place] [address] + + + + + | Code [...]
--- OUTSIDE RECORDS SUMMARY | ~2019-01-08 | XMS | Clinical Summary ---
Demographics + + + | Address | [address] | | | [place] [address] | + + + | Home Phone | | + + + | Preferred Language | Unknown | + + + | Marital Status | | + + + | Episcopalian Affiliation | 1027 | + + + | Race | Unknown | + + + | Ethnic Group | Unknown | + + + Author + + + | Author | [facility] | | | and [place] | + + + | Organization | [facility] | | | [...] Team Providers + +------+ + | Care Wrecking Mechanic Name | Role | Phone | [...] +--------+ +---------+--------+ | MEDICARE | MEDICA | [id number] | 03/02/19 | [phone] | | Medica | | | RE | | 94-Pre | 5 | | re | | | PART A | | sent | | | | | | AND B | | | | | | + +--------+ +--------+ +---------+--------+ | [place] | BCBS | [id number] | 08/02/19 | [phone] | | Indemn [...] Person | Self | [birth year] | | [address] | | | al/Fam | | 1930 | [phone] | [place] | | | afshan | | | 5 ([place]) | [phone] | + +--------+ +--------+ + + Advance Directives Patient has advance care planning documents, and code status on file. For more information, please contact:[facility] and [place] [address] + + + + + | Code [...]
--- OUTSIDE RECORDS SUMMARY | ~2019-01-08 | XMS | Clinical Summary ---
Demographics + + + | Address | [address] | | | [place] [address] | + + + | Home Phone [...] + + + | Author | [facility] | + + + | Organization | [facility] | + + + | Address | Unknown | + + + | Phone | Unavailable | + + + Support + + + + + | Name | Relationship | Address | Phone | + + + + + | [place] | ECON | [address] | | | | | [place] | | | | | [address] | | + + + + + Care Team Providers + +------+ + | Care Table Keeper Name | Role | Phone | + [...]
--- OUTSIDE RECORDS SUMMARY | ~2019-01-08 | XMS | Clinical Summary ---
Demographics + + + | Address | [address] | | | [place] [address] | + + + | Home Phone | | + + + | Preferred Language | Unknown | + + + | Marital Status | | + + + | Mormon Affiliation | 1027 | + + + | Race | Unknown | + + + | Ethnic Group | Unknown | + + + Author + + + | Author | [facility] | + + + | Organization | [facility] | + + + | Address | Unknown | + + + | Phone | Unavailable | + + + Support + + + + + | Name | Relationship | Address | Phone | + + + + + | [place] | ECON | [address] | | | | | [place] | | | | | [address] | | + + + + + Care Team Providers + +------+ + | Care Fleecer Name | Role | Phone | + [...]
[~2019-01-08 14:18] MED LIST changes: +ASPIRIN81 MG PO; +NORCO 5-325 TA1 EACH PO
--- NOTE | 2019-01-09 07:16 | EKG ---
[facility] [address] [place] [address] Signed Sinus tachycardia Left axis deviation Nonspecific intraventricular block Inferior infarct (cited on or before 17-OCT-2016) T wave abnormality, consider lateral ischemia Abnormal ECG When compared with ECG of 18-APR-2018 21:59, premature atrial complexes are no longer present AR interval has decreased Borderline criteria for Anterior infarct are no longer present Borderline criteria for Anterolateral infarct are no longer present Confirmed by KYLER MATHIS MD ([id number]) on 01/09/2019 7:16:16 AM Electronically Signed By: KYLER MATHIS MD 01/09/19 0716 PATIENT NAME: BELEN VERDUGO Electrocardiogram DATE OF : [birth year] PHYSICIAN: KYLER MATHIS MD REPORT #: [id number] REPORT IS CONFIDENTIAL AND NOT TO BE RELEASED WITHOUT AUTHORIZATION
[2019-01-11] MEDS ORDERED: LEVOFLOXACIN250 MG PO (06:52)
== END 2019-01-11 11:11 | disposition home health service (06) ==
LOC: ED 14:18 → MS 14:20
PROVIDERS: ADMIT Internal Medicine
DX: G93.41 Metabolic encephalopathy (principal); N39.0 Urinary tract infection, site not specified; B96.4 Proteus (mirabilis) (morganii) as the cause of diseases classified elsewhere; E86.0 Dehydration; E78.00 Pure hypercholesterolemia, unspecified; I10 Essential (primary) hypertension; G20 Parkinson's disease; E11.9 Type 2 diabetes mellitus without complications; I25.2 Old myocardial infarction; Z86.73 Personal history of transient ischemic attack (TIA), and cerebral infarction without residual deficits; Z95.5 Presence of coronary angioplasty implant and graft; Z95.3 Presence of xenogenic heart valve; Z79.84 Long term (current) use of oral hypoglycemic drugs; Z79.02 Long term (current) use of antithrombotics/antiplatelets; Z79.82 Long term (current) use of aspirin; Z79.891 Long term (current) use of opiate analgesic; Z79.899 Other long term (current) drug therapy; Z88.1 Allergy status to other antibiotic agents; Z88.8 Allergy status to other drugs, medicaments and biological substances
CPT/HCPCS: 36415; 51701; 70450; 71045; 80048; 80053; 81001; 83605; 84484; 85025; 85610; 87077; 87088; 87186; 92610; 93005; 93010; 96361; 96372; 96374; 96375; 96376; 97162; 99285-25; C9113; G0378; J0131; J0696; J1650; J1815; J7030